=== PATIENT | male | born 1965 | race Caucasian/White ===

== ENCOUNTER 2021-02-28 16:44 | Emergency (ER) | payer OTHER, SELFPAY ==
[2021-02-28 17:07] VITALS: BP 209/112; PULSE 70; RESP 16; TEMP 36.3; O2SAT 97; BMI 32.8
[2021-02-28] MEDS: OXYMETAZOLINE NASAL SPRAY 15 ML 2 SPRAYS NASAL (17:19)
--- NOTE | 2021-02-28 17:23 | PC.NURSE ---
Afrin administered and bleeding controlled with nasal clamp
--- NOTE | 2021-02-28 17:24 | ED_ITS ---
HPI - General Adult General Chief complaint: Nasal Problem Stated complaint: ON BLOOD THINNER NON STOP NOSE BLEED Time Seen by Provider: 02/28/21 17:04 Source: patient Mode of arrival: Ambulatory History of Present Illness HPI narrative: Patient is a 55-year-old male. History of high blood pressure. Has not taken his night dose of metoprolol. Also on Plavix for a cardiac stent that he had placed 13 years ago. His here for evaluation of a nose bleed. He has been having some sinus congestion recently. No trauma. Nose started bleeding earlier today. Related Data Home Medications Medication Instructions Recorded Confirmed clopidogrel 75 mg tablet (Plavix) 75 mg PO QDAY #0 06/09/17 metoprolol tartrate 50 mg tablet 50 mg PO BID #0 06/09/17 Previous Rx's Medication Instructions Recorded metoprolol tartrate 50 mg tablet 50 mg PO BID #28 tab 06/09/17 Allergies Allergy/AdvReac Type Severity Reaction Status Date / Time No Known Allergies Allergy Uncoded 08/29/17 12:50 Review of Systems ENT Ears, Nose, Mouth, and Throat: Reports system reviewed and no additional complaints, except as documented and Reports as per HPI Cardiovascular Cardiovascular: Denies chest pain and Denies dyspnea Respiratory Respiratory: Denies dyspnea Gastrointestinal Gastrointestinal: Denies abdominal pain and Denies nausea Integumentary/Breasts Skin/Breast: Reports system reviewed and no additional complaints, except as documented Hematologic/Lymphatic Comments: On Plavix Patient History Medical History Coronary artery disease Heart palpitations Hypertension Social History marital status: lives independently: Yes Exam Initial Vital Signs Initial Vital Signs: Vital Signs Temperature 97.4 F L 02/28/21 17:07 Pulse Rate 70 02/28/21 17:07 Respiratory Rate 16 02/28/21 17:07 Blood Pressure 209/112 H 02/28/21 17:07 Pulse Oximetry 97 02/28/21 17:07 Const General: cooperative, comfortable and well developed [facility] Head: normal to inspection and normocephalic Nose: other (Blood clot left nares, right nares unremarkable) Resp Effort & Inspection: normal respiratory effort Skin General: no rashes or lesions noted Neuro General: patient alert, patient awake and moves all extremities Extrem General: normal to inspection Procedures Epistaxis Control Nostril: left Nose Prepped With: oxymetazoline Direct Inspection: yes Cautery Used: none Device Inserted: other (Nasal clamp) Patient Tolerated Procedure: well Course Orders Ordered: Discontinued Medications Oxymetazoline HCl (Oxymetazoline Nasal [place] 15 Ml) 2 sprays NASAL NOW ONE Stop: 02/28/21 17:05 Last Admin: 02/28/21 17:19 Dose: 2 sprays Documented by: NAIMA Vital Signs Vital signs: Vital Signs - 8 hr 02/28/21 17:07 Temperature 97.4 F L Pulse Rate 70 Respiratory Rate 16 Blood Pressure 209/112 H Pulse Oximetry 97 Medical Decision Making MDM Narrative Medical decision making narrative: Patient did have a nasal clamp in place by triage prior to my evaluation. By the time I evaluated the patient he had also received Afrin and a nasal clamp as well. This was left in place for approximately 20 minutes. It was removed. There was a large clot seen in the left nares but no active bleeding. He was observed for short period of time. Only had a very slight amount of oozing from the area that I feel is most likely from the clot and not from active bleeding. I do feel that we should hold on any nasal packing for now. Will send home with instructions with what to do if he starts bleeding once again. He was given return precautions and follow-up instructions. He expressed understanding and agreement Discharge Plan Departure Patient Disposition: Home Clinical Impression: Epistaxis, Hypertension Instructions: Essential Hypertension, DI for Nosebleed Activity Restrictions/Additional Instructions: I do recommend that you take your night dose of metoprolol this evening. I would skip your dose of Plavix this evening. Do your best not to rub your nose nor sniff like we discussed. Return to the emergency department for any new or worsening symptoms like we discussed. Prescriptions: No Action metoprolol tartrate 50 MG tablet 50 mg PO BID Qty: 0 RF: 0 clopidogrel [Plavix] 75 MG tablet 75 mg PO QDAY Qty: 0 RF: 0 metoprolol tartrate 50 MG tablet 50 mg PO BID Qty: 28 RF: 0
[2021-02-28 18:00] VITALS: BP 187/102; PULSE 61; RESP 16; O2SAT 95
[2021-02-28 18:48] VITALS: BP 192/110; PULSE 62; RESP 16; O2SAT 96
== END 2021-02-28 18:50 | disposition home or self-care (01) ==
PROVIDERS: Emergency Provider Emergency Medicine
DX: R04.0 Epistaxis (principal); I10 Essential (primary) hypertension
CPT/HCPCS: 99282; A9270

== ENCOUNTER 2021-07-30 01:23 | Emergency (ER) | payer OTHER, SELFPAY ==
[2021-07-30 01:25] VITALS: BP 194/95; PULSE 88; RESP 18; TEMP 36.1; O2SAT 96; BMI 32.3
--- NOTE | 2021-07-30 01:27 | ED_ITS ---
HPI - Headache General Chief Complaint: Headache Stated Complaint: LEFT SIDE HEAD PAIN Time Seen by Provider: 07/30/21 01:27 History of Present Illness HPI Narrative: 56-year-old male former smoker with a history of coronary artery disease presents with his in the chief complaint of a left-sided headache for the past few days. He states it started gradually and has no obvious provocation but seems to improve when he takes Excedrin. He denies blurred vision, double vision, difficulty with speech, dizziness or extremity weakness, numbness or tingling. He denies any chest pain or shortness of breath. He has no abdominal pain, nausea or vomiting. He denies any recent trauma or neck pain. He takes no blood thinners. He states that his pain is about an 8/10 and squeezing in nature. He states that he stopped drinking coffee for some reason though he traditionally drinks a significant amount. He did this on Sunday, Sunday and Sunday and states his headache started soon thereafter. Related Data Home Medications Medication Instructions Recorded Confirmed clopidogrel 75 mg tablet (Plavix) 75 mg PO QDAY #0 06/09/17 metoprolol tartrate 50 mg tablet 50 mg PO BID #0 06/09/17 Previous Rx's Medication Instructions Recorded metoprolol tartrate 50 mg tablet 50 mg PO BID #28 tab 06/09/17 ketorolac 10 mg tablet 10 mg PO Q6H PRN #14 tab 07/30/21 Allergies Allergy/AdvReac Type Severity Reaction Status Date / Time No Known Allergies Allergy Uncoded 08/29/17 12:50 Review of Systems Review of Systems Narrative: GENERAL: See HPI HEENT: See HPI RESPIRATORY: Denies dyspnea, cough, wheezing, hemoptysis, sputum. CARDIOVASCULAR: Denies chest pain, palpitations, orthopnea, edema, GASTROINTESTINAL: Denies nausea, vomiting, abdominal pain, diarrhea, constipation, melena. : Denies dysuria, frequency, incontinence, hematuria, urinary retention. MUSCULOSKELETAL: denies weakness, joint pain, or bony pain SKIN: Denies rash, skin lesions, or other NEUROLOGIC: See HPI PSYCHIATRIC: No concerning psychosocial issues. 12 point review of systems is negative except for those stated above Patient History Medical History Coronary artery disease Heart palpitations Hypertension Social History marital status: lives independently: Yes Smoking Status: Former smoker Exam Narrative Exam Narrative: GENERAL: 56 year old patient appears stated age. Well-developed patient, in mild distress. Anxious HEAD: Atraumatic. Normocephalic. No pain, swelling, erythema upon palpating left judaism EYES: Pupils equal round and reactive. Extraocular motions intact. No scleral icterus. No injection or drainage. No watering. Pressures checked in both eyes. Left eye measures 19 mmHg, right eye measures 20 mm Hg ENT: Nose without bleeding, purulent drainage. Throat without erythema, tonsillar hypertrophy or exudate. Airway patent. NECK: Trachea midline. Non tender. No meningeal signs CARDIOVASCULAR: Regular rate and rhythm without murmurs, gallops, or rubs. RESPIRATORY: Clear to auscultation. Breath sounds equal bilaterally. No wheezes, rales, or rhonchi. GASTROINTESTINAL: Abdomen soft, non-tender, nondistended. EXTREMITIES: No edema or joint tenderness. BACK: Nontender without deformity or crepitance. No flank tenderness. NEURO: AOx3. SKIN: No rash or erythema of visible areas NIH Stroke Scale 1a. LOC: Patient is alert and keenly responsive (0) 1b. LOC Questions: Patient answers both LOC questions accurately (0) 1c. LOC Commands: Patient performs both tasks correctly (0) 2. Best Gaze: Normal (0) 3. Visual: No visual loss (0) 4. Facial palsy: Normal symmetrical movements (0) 5. Motor arm: No drift (0) 6. Motor leg: No drift (0) 7. Limb ataxia: Absent (0) 8. Sensory: Normal (0) 9. Best language: No aphasia; normal (0) 10. Dysarthria: Normal (0) 11. Extinction and inattention: No abnormality (0) NIHSS: 0 Initial Vital Signs Initial Vital Signs: Vital Signs Temperature 97 F L 07/30/21 01:25 Pulse Rate 88 07/30/21 01:25 Respiratory Rate 18 07/30/21 01:25 Blood Pressure 194/95 H 07/30/21 01:25 Pulse Oximetry 96 07/30/21 01:25 Course Orders Ordered: ED Orders 07/30/21 01:35 CT head/brain wo con Stat 07/30/21 01:55 CRP [C-Reactive Protein Quant] Stat Complete Blood Count AUTO DIFF Stat Comprehensive Metabolic Panel Stat ESR [Erythrocyte Sedimentation Rate] Stat Lipase Stat Troponin & CK Cardiac Panel Stat Discontinued Medications Sodium Chloride (Normal Saline 0.9%) 1,000 mls @ 150 mls/hr IV CONT ANTONIA Last Infusion: 07/30/21 03:40 Dose: 150 mls/hr Documented by: Admin: 07/30/21 01:45 Dose: 150 mls/hr Documented by: PRIETO Ketorolac Tromethamine (Ketorolac 30 Mg/Ml Vial) 15 mg IV NOW ONE Stop: 07/30/21 02:27 Last Admin: 07/30/21 02:41 Dose: 15 mg Documented by: PRIETO Proparacaine HCl (Proparacaine 0.5% Ophth Bri) 1 drops EYE-LEFT NOW ONE Stop: 07/30/21 01:36 Last Admin: 07/30/21 01:45 Dose: 1 drop Documented by: PRIETO Reevaluation(s) Reevaluation #1: Patient has significant if not complete resolution of symptoms after above- stated therapies Vital Signs Vital signs: Vital Signs - 8 hr 07/30/21 01:25 07/30/21 01:45 07/30/21 02:00 Temperature 97 F L Pulse Rate 88 80 79 Respiratory Rate 18 18 18 Blood Pressure 194/95 H 192/102 H 174/98 H Pulse Oximetry 96 93 93 07/30/21 02:30 07/30/21 03:00 Temperature Pulse Rate 72 63 Respiratory Rate 19 16 Blood Pressure 189/96 H 174/97 H Pulse Oximetry 91 95 MDM - Headache Lab Data Attestation: I reviewed the patient's lab results. Result diagrams: 07/30/21 01:55 07/30/21 01:55 Labs: Lab Results 07/30/21 07/30/21 07/30/21 Range/Units 01:55 01:55 01:55 WBC 10.6 (4.5-11.0) X10^3/uL RBC 5.52 (4.5-5.9) X10^6/uL Hgb 16.6 (13.5-17.5) g/dL Hct 47.9 (41-53) % MCV 86.7 (80-100) fL MCH 30.0 (26-34) PG MCHC 34.6 (30-36) % RDW 14.0 (11.6-14.8) % Plt Count 307 (150-400) X10^3/uL Neut % (Auto) 61.8 (50-75) % Lymph % (Auto) 23.8 L (25-40) % Blanco % (Auto) 11.6 (3-14) % Eos % (Auto) 2.0 (2-4) % Baso % (Auto) 0.8 (0-2) % Neut # (Auto) 6500 (2489-9977) /uL Lymph # (Auto) 2500 (9594-1149) /uL Blanco # (Auto) 1200 H (0-900) /uL Eos # (Auto) 200 (0-450) /uL Baso # (Auto) 100 (0-100) /uL ESR 7 (0-15) MM/HR Sodium 139 (137-145) mmol/L Potassium 3.4 (3.4-5.1) mmol/L Chloride 105 (98-107) mmol/L Carbon Dioxide 26 (22-32) mmol/L BUN 16 (9-20) mg/dL Creatinine 0.90 (0.66-1.25) mg/dL Estimated GFR > 60.0 (>60) mL/min BUN/Creatinine Ratio 17.8 (6-22) Glucose 134 H (70-100) mg/dL Calcium 10.0 (8.4-10.2) mg/dL Total Bilirubin 0.8 (0.2-1.3) mg/dL AST 29 (17-59) IU/L ALT 32 (<50) IU/L Alkaline Phosphatase 48 (38-126) U/L Total Creatine Kinase 72 (55-170) U/L CK-MB (CK-2) TNP CK-MB (CK-2) Rel Index TNP Troponin I < 0.012 (0.01-0.034) ng/mL C-Reactive Protein (<1.0) mg/dL Total Protein 8.5 H (6.3-8.2) g/dL Albumin 4.7 (3.5-5.0) g/dL Globulin 3.8 (1.7-4.1) g/dL Albumin/Globulin Ratio 1.2 (1.0-2.8) Lipase 228 (23-300) U/L 07/30/21 Range/Units 01:55 WBC (4.5-11.0) X10^3/uL RBC (4.5-5.9) X10^6/uL Hgb (13.5-17.5) g/dL Hct (41-53) % MCV (80-100) fL MCH (26-34) PG MCHC (30-36) % RDW (11.6-14.8) % Plt Count (150-400) X10^3/uL Neut % (Auto) (50-75) % Lymph % (Auto) (25-40) % Blanco % (Auto) (3-14) % Eos % (Auto) (2-4) % Baso % (Auto) (0-2) % Neut # (Auto) (8888-7974) /uL Lymph # (Auto) (6482-1047) /uL Blanco # (Auto) (0-900) /uL Eos # (Auto) (0-450) /uL Baso # (Auto) (0-100) /uL ESR (0-15) MM/HR Sodium (137-145) mmol/L Potassium (3.4-5.1) mmol/L Chloride (98-107) mmol/L Carbon Dioxide (22-32) mmol/L BUN (9-20) mg/dL Creatinine (0.66-1.25) mg/dL Estimated GFR (>60) mL/min BUN/Creatinine Ratio (6-22) Glucose (70-100) mg/dL Calcium (8.4-10.2) mg/dL Total Bilirubin (0.2-1.3) mg/dL AST (17-59) IU/L ALT (<50) IU/L Alkaline Phosphatase (38-126) U/L Total Creatine Kinase (55-170) U/L CK-MB (CK-2) CK-MB (CK-2) Rel Index Troponin I (0.01-0.034) ng/mL C-Reactive Protein < 0.5 (<1.0) mg/dL Total Protein (6.3-8.2) g/dL Albumin (3.5-5.0) g/dL Globulin (1.7-4.1) g/dL Albumin/Globulin Ratio (1.0-2.8) Lipase (23-300) U/L Imaging Data CT scan - head: Radiologist's Impression: [address] [address] [address] Scan Report Signed Patient: Felipe Petersen MR#: [id number] : 1965 Acct:[id number] Age/Sex: 56 / M Date of Service: 07/30/21 Loc: ED Accession Number: [id number] ?? Procedure: CT head/brain wo con Ordering Provider: Oliver Pierce D.O. PROCEDURE:? CT HEAD/BRAIN WO CON ? INDICATIONS:? severe headache, vision change, HTN, thinners ? TECHNIQUE:? Noncontrast 4.5 mm thick angled axial sections acquired from the foramen magnum to the vertex, with coronal and sagittal reformats.? For radiation dose reduction, the following was used:? automated exposure control, adjustment of mA and/or kV according to patient size.? ? COMPARISON:? None. ? FINDINGS:? Image quality:? Excellent.? ? CSF spaces:? Basal cisterns are patent.? No extra-axial fluid collections.? Ventricles are normal in size and shape.? ? Brain:? No midline shift.? No intracranial masses or hemorrhage.? Graham-white matter interface is normal.? ? Skull and face:? Calvarium and visualized facial bones are intact, without suspicious lesions.? ? Sinuses:? Visualized sinuses and mastoids are clear.? ? IMPRESSION:? No acute intracranial abnormality. ? ? Dictated by: Fausto Chang M.D. on 07/30/2021 at 1:49 ? ? Approved by: Fausto Chang M.D. on 07/30/2021 at 1:52 ? MDM Narrative Medical decision making narrative: Headache considerations include, but not limited to: Subarachnoid hemorrhage, but unlikely as patient denies sudden onset of pain, not worst of life, or neck pain Meningitis considered, but thought unlikely given lack of Brudzinski's, Kernig's sign, altered mental status or fever Giant cell arteritis considered, but thought unlikely given lack of unilateral findings, pain in judaism, vision change HTN Emergency considered, but headache improvement was more temporally related to fluids and Toradol than blood pressure control. On discharge his blood pre ssure was in the 170s Other serious diagnoses considered unlikely given lack of red flag findings such as sudden onset, increasing frequency, immunocompromise, systemic signs (fever, chills, stiff neck, or rash), focal neurologic findings, trauma, blood thinners, etc. Source of his symptoms are likely multifactorial but is change in caffeine consumption closely followed by presentation of headaches with improvement when taking Excedrin would suggest this plays a significant role. Patient's symptoms improved over duration of stay with above-stated therapies. Findings and discharge diagnosis discussed with patient/family followed by verbalization of understanding Return precautions discussed with patient/family whom verbalize understanding. Discharge Plan Departure Patient Disposition: Home Clinical Impression: Headache Instructions: DI for Headache Activity Restrictions/Additional Instructions: *You have been diagnosed with [ Headache ] as we discussed your history and physical exam are very reassuring as are your labs, CT scan and response to therapies. It would seem that there are likely multiple contributing factors to your headache and your decreased caffeine intake is likely a large part of this *What to do: *Take medications as directed *Follow up with your primary care provider in 2-3 days, call for an appointment. Let them know you were seen in the Emergency Department and that we ask that you be seen in follow up *Return to ER if you should have any new, worsening or concerning symptoms, such as [ fever > 101F, neck pain or stiffness, vomiting, confusion, seizure, focal weakness, vision change, speech deficit or other concerning symptoms ] Prescriptions: New ketorolac 10 mg tablet 10 mg PO Q6H PRN (Reason: pain) Qty: 14 0RF No Action metoprolol tartrate 50 MG tablet 50 mg PO BID Qty: 0 0RF clopidogrel [Plavix] 75 MG tablet 75 mg PO QDAY Qty: 0 0RF metoprolol tartrate 50 MG tablet 50 mg PO BID Qty: 28 0RF
--- NOTE | 2021-07-30 01:35 | DI.CT.S_ITS ---
PROCEDURE: CT HEAD/BRAIN WO CON INDICATIONS: severe headache, vision change, HTN, thinners TECHNIQUE: Noncontrast 4.5 mm thick angled axial sections acquired from the foramen magnum to the vertex, with coronal and sagittal reformats. For radiation dose reduction, the following was used: automated exposure control, adjustment of mA and/or kV according to patient size. COMPARISON: None. FINDINGS: Image quality: Excellent. CSF spaces: Basal cisterns are patent. No extra-axial fluid collections. Ventricles are normal in size and shape. Brain: No midline shift. No intracranial masses or hemorrhage. Graham-white matter interface is normal. Skull and face: Calvarium and visualized facial bones are intact, without suspicious lesions. Sinuses: Visualized sinuses and mastoids are clear. IMPRESSION: No acute intracranial abnormality. Dictated by: Fausto Chang M.D. on 07/30/2021 at 1:49 Approved by: Fausto Chang M.D. on 07/30/2021 at 1:52
[2021-07-30 01:45] VITALS: BP 192/102; PULSE 80; RESP 18; O2SAT 93
[2021-07-30] MEDS: PROPARACAINE 0.5% OPHTH SOL 1 DROPS EYE-LEFT (01:45)
[2021-07-30] MEDS: SODIUM CHLORIDE 0.9% 1,000 ML 150 ML IV (01:45)
[2021-07-30 02:00] VITALS: BP 174/98; PULSE 79; RESP 18; O2SAT 93
[2021-07-30 02:11] LABS: Add Manual Diff / Slide Review NO; Basophils Absolute Auto 100 /uL (0-100); Basophils Percent Auto 0.8 % (0-2); Eosinophils Absolute Auto 200 /uL (0-450); Hematocrit 47.9 % (41-53); Hemoglobin 16.6 g/dL (13.5-17.5); Lymphocytes Absolute Auto 2500 /uL (1100-4500); Lymphocytes Percent Auto 23.8 % (25-40); Mean Corpuscular HGB Conc 34.6 % (30-36); Mean Corpuscular Volume 86.7 fL (80-100); Monocytes Absolute Auto 1200 /uL (0-900); Monocytes Percent Auto 11.6 % (3-14); Neutrophils Absolute Auto 6500 /uL (1500-7000); Neutrophils Percent Auto 61.8 % (50-75); Platelet Count 307 X10^3/uL (150-400); Red Blood Cell Count 5.52 X10^6/uL (4.5-5.9); White Blood Cell Count 10.6 X10^3/uL (4.5-11.0)
[2021-07-30 02:29] LABS: Alanine Aminotransferase 32 IU/L (<50); Albumin 4.7 g/dL (3.5-5.0); Albumin Globulin Ratio 1.2 (1.0-2.8); Alkaline Phosphatase 48 U/L (38-126); Aspartate Aminotransferase 29 IU/L (17-59); BUN Creatinine Ratio 17.8 (6-22); Bilirubin Total 0.8 mg/dL (0.2-1.3); Blood Urea Nitrogen 16 mg/dL (9-20); Carbon Dioxide 26 mmol/L (22-32); Chloride 105 mmol/L (98-107); Creatine Kinase 72 U/L (55-170); Estimated Glomerular Filt Rate > 60.0 mL/min (>60); Globulin 3.8 g/dL (1.7-4.1); Glucose 134 mg/dL (70-100); HEMOLYSIS < 15 (0-50); Lipase 228 U/L (23-300); Potassium 3.4 mmol/L (3.4-5.1); Sodium 139 mmol/L (137-145); Total Protein 8.5 g/dL (6.3-8.2)
[2021-07-30 02:30] VITALS: BP 189/96; PULSE 72; RESP 19; O2SAT 91
[2021-07-30 02:33] LABS: C-Reactive Protein Quant < 0.5 mg/dL (<1.0)
[2021-07-30 02:34] LABS: Erythrocyte Sedimentation Rate 7 MM/HR (0-15)
[2021-07-30 02:40] LABS: Troponin I < 0.012 ng/mL (0.01-0.034)
[2021-07-30] MEDS: KETOROLAC 30 MG/ML VIAL 15 MG IV (02:41)
[2021-07-30 03:00] VITALS: BP 174/97; PULSE 63; RESP 16; O2SAT 95
== END 2021-07-30 03:42 | disposition home or self-care (01) ==
PROVIDERS: Emergency Provider Emergency Medicine
DX: R51.9 Headache, unspecified (principal); Z87.891 Personal history of nicotine dependence
CPT/HCPCS: 36415; 70450; 80053; 82550; 83690; 84484; 85025; 85651; 86140; 96361; 96374; 99284; 99285; J1885

== ENCOUNTER 2021-08-02 14:46 | Emergency (ER) | payer OTHER, SELFPAY ==
[2021-08-02] VITALS (12 sets, daily range): BP systolic 172–213; BP diastolic 87–103; PULSE 55–68; RESP 12–22; TEMP 36.9; O2SAT 94–99
--- NOTE | 2021-08-02 16:15 | ED_ITS ---
HPI - Headache General Chief Complaint: Headache Stated Complaint: LEFT SIDE OF HEAD PAIN NUMBNESS BLURRY VISION Time Seen by Provider: 08/02/21 16:07 Mode of arrival: Ambulatory History of Present Illness HPI Narrative: Patient is a 56-year-old male history of coronary artery disease presenting for the 2nd time this week with high headache. He says he has been having headache for the last week. He does not typically have headaches. He says it is quite severe on the left side of his head. He has no blurry vision nausea vomiting numbness tingling weakness or chest pain when it comes. Headache resolved with Excedrin. He states that is soon is Excedrin wears off the headache comes back. He has been taking metoprolol for his heart but he has not been checking his blood pressure. He is noted to have quite elevated blood pressure here. He was seen and evaluated here 3 days ago for the same. At that time he is also noted to have elevated blood pressure in the 190s and it did go down into the 170s. He had a negative head CT and workup on the . He continue to have headaches and was instructed to come back to the emergency department for possible MRI. His symptoms remain the same today. He denies any chest pain or palpitations. Related Data Home Medications Medication Instructions Recorded Confirmed clopidogrel 75 mg tablet (Plavix) 75 mg PO QDAY #0 06/09/17 metoprolol tartrate 50 mg tablet 50 mg PO BID #0 06/09/17 Previous Rx's Medication Instructions Recorded metoprolol tartrate 50 mg tablet 50 mg PO BID #28 tab 06/09/17 ketorolac 10 mg tablet 10 mg PO Q6H PRN #14 tab 07/30/21 hydrochlorothiazide 25 mg tablet 25 mg PO DAILY #30 tab 08/02/21 Allergies Allergy/AdvReac Type Severity Reaction Status Date / Time No Known Drug Allergies Allergy Verified 08/02/21 17:51 Review of Systems Review of Systems Narrative: GENERAL: Denies chills, fatigue, malaise, fever, sweats, travel HEENT: Denies sinus pain, ear pain, sore throat, difficulty swallowing, neck pain RESPIRATORY: Denies dyspnea, cough, wheezing, hemoptysis, sputum. CARDIOVASCULAR: Denies chest pain, palpitations, orthopnea, edema GASTROINTESTINAL: Denies nausea, vomiting, abdominal pain, diarrhea, constipation, melena. : Denies dysuria, frequency, incontinence, hematuria, urinary retention, flank pain. MUSCULOSKELETAL: Denies weakness, joint pain, or bony pain SKIN: No rash, no erythema, no pruritus NEUROLOGIC: See HPI PSYCHIATRIC: No concerning psychosocial issues. 12 point review of systems is negative except for those stated above and HPI Patient History Medical History Coronary artery disease Heart palpitations Hypertension Social History marital status: lives independently: Yes Smoking Status: Former smoker Smoking Status: Former smoker alcohol intake frequency: 0-2 drinks per day Substance Use Type: does not use Exam Initial Vital Signs Initial Vital Signs: Vital Signs Temperature 98.4 F 08/02/21 14:49 Pulse Rate 66 08/02/21 14:49 Respiratory Rate 18 08/02/21 14:49 Blood Pressure 203/103 H 08/02/21 14:49 Pulse Oximetry 97 08/02/21 14:49 GENERAL: Alert 56-year-old male in no acute distress. HEENT: Head atraumatic, non tender over temporal artery, EOMI, pupils reactive, face symmetric, moist mucous membranes CARDIOVASCULAR: Regular rate and rhythm without murmurs, rubs or gallops. RESPIRATORY: Breath sounds equal bilaterally, no wheezes rales or rhonchi. ABDOMEN: Soft, nontender. Normoactive bowel sounds all 4 quadrants. No guarding or rebound. : No CVA tenderness EXTREMITIES: Normal range of motion, no clubbing or edema. Neurovascularly intact NEUROLOGICAL: Alert and oriented x4.Normal gait and speech. SKIN: Warm, dry, no laceration, no petechiae, no rashes or lesions. Scores NIH Stroke Scale Level of Conciousness: Alert, keenly responsive Ask month/age: Answers both questions correctly. Open/close eyes, close hand: Performs both tasks correctly Best gaze horizontal: Normal Visual grant: No visual loss Facial palsy: Normal symetrical movement Left arm drift: No drift for full 10 sec Right arm drift: No drift for full 10 sec Left leg drift: No drift for full 5 sec Right leg drift: No drift for full 5 sec Limb ataxia: Absent Sensory on face/arms/legs: Normal, no sensory loss Best language: No aphasia, normal Dysarthria: Normal Extinction or inattention: No abnormality Total NIH Stroke scale score: 0 Course Orders Ordered: ED Orders 08/02/21 16:27 EKG-12 Lead Stat 08/02/21 16:41 Complete Blood Count AUTO DIFF Stat Comprehensive Metabolic Panel Stat Lipase Stat Troponin & CK Cardiac Panel Stat Discontinued Medications Sodium Chloride (Normal Saline 0.9%) 1,000 mls @ 1,000 mls/hr IV CONT ANTONIA Last Infusion: 08/02/21 18:02 Dose: 0 mls/hr Documented by: Admin: 08/02/21 16:58 Dose: 1,000 mls/hr Documented by: KOREY Ketorolac Tromethamine (Ketorolac 30 Mg/Ml Vial) 15 mg IV NOW ONE Stop: 08/02/21 16:28 Last Admin: 08/02/21 16:57 Dose: 15 mg Documented by: KOREY Labetalol HCl (Labetalol 20 Mg/4 Ml Syringe) 10 mg IV NOW ONE Stop: 08/02/21 17:30 Last Admin: 08/02/21 17:39 Dose: 10 mg Documented by: KOREY Vital Signs Vital signs: Vital Signs - 8 hr 08/02/21 14:49 08/02/21 16:29 08/02/21 16:30 Temperature 98.4 F Pulse Rate 66 63 68 Respiratory Rate 18 15 16 Blood Pressure 203/103 H 213/98 H Pulse Oximetry 97 99 96 08/02/21 16:34 08/02/21 17:00 08/02/21 17:30 Temperature Pulse Rate 63 59 L 57 L Respiratory Rate 15 12 13 Blood Pressure 196/100 H 198/99 H Pulse Oximetry 98 95 94 08/02/21 17:31 08/02/21 17:39 08/02/21 18:00 Temperature Pulse Rate 58 L 58 L 65 Respiratory Rate 19 20 Blood Pressure 198/87 H 198/97 H 207/93 H Pulse Oximetry 94 94 08/02/21 18:06 08/02/21 18:19 08/02/21 18:30 Temperature Pulse Rate 55 L 60 57 L Respiratory Rate 13 22 16 Blood Pressure 204/88 H 186/91 H 172/92 H Pulse Oximetry 96 96 95 MDM - Headache Lab Data Result diagrams: 08/02/21 16:41 08/02/21 16:41 Labs: Lab Results 08/02/21 08/02/21 Range/Units 16:41 16:41 WBC 8.3 (4.5-11.0) X10^3/uL RBC 5.34 (4.5-5.9) X10^6/uL Hgb 16.5 (13.5-17.5) g/dL Hct 46.4 (41-53) % MCV 86.8 (80-100) fL MCH 30.9 (26-34) PG MCHC 35.6 (30-36) % RDW 13.4 (11.6-14.8) % Plt Count 312 (150-400) X10^3/uL Neut % (Auto) 57.4 (50-75) % Lymph % (Auto) 27.0 (25-40) % [place] % (Auto) 11.1 (3-14) % Eos % (Auto) 3.3 (2-4) % Baso % (Auto) 1.2 (0-2) % Neut # (Auto) 4700 (9640-7790) /uL Lymph # (Auto) 2200 (5435-7314) /uL [place] # (Auto) 900 (0-900) /uL Eos # (Auto) 300 (0-450) /uL Baso # (Auto) 100 (0-100) /uL Sodium 139 (137-145) mmol/L Potassium 4.0 (3.4-5.1) mmol/L Chloride 105 (98-107) mmol/L Carbon Dioxide 30 (22-32) mmol/L BUN 20 (9-20) mg/dL Creatinine 0.86 (0.66-1.25) mg/dL Estimated GFR > 60.0 (>60) mL/min BUN/Creatinine Ratio 23.3 H (6-22) Glucose 98 (70-100) mg/dL Calcium 8.9 (8.4-10.2) mg/dL Total Bilirubin 0.7 (0.2-1.3) mg/dL AST 30 (17-59) IU/L ALT 32 (<50) IU/L Alkaline Phosphatase 43 (38-126) U/L Total Creatine Kinase 55 (55-170) U/L CK-MB (CK-2) TNP CK-MB (CK-2) Rel Index TNP Troponin I < 0.012 (0.01-0.034) ng/mL Total Protein 8.4 H (6.3-8.2) g/dL Albumin 4.5 (3.5-5.0) g/dL Globulin 3.9 (1.7-4.1) g/dL Albumin/Globulin Ratio 1.2 (1.0-2.8) Lipase 270 (23-300) U/L ECG Data Interpretation: Will sinus rhythm rate 56 WV interval 166 QRS [address] changes no T-wave inversions similar to previous EKG MDM Narrative Medical decision making narrative: Patient's blood pressure is noted be quite elevated during this emergency department stay and last. Only briefly came down. His he does have a history of high blood pressure he actually apparently with previously on lisinopril but due to a side effect of cough he stopped taking it. I think his headaches are likely due to uncontrolled hypertension. He currently is not having headache at this time though. He is agreeable to start blood pressure medication. At this time patient has no evidence of end-organ damage. He has no focal deficit deficits to warrant repeat imaging. He also states he stop taking Plavix but was taking aspirin due to multiple epistaxis Discharge Plan Departure Patient Disposition: Home Clinical Impression: Hypertension Instructions: Essential Hypertension Activity Restrictions/Additional Instructions: *You have been diagnosed with hypertension *What to do: At this time I think it is reasonable that we get your blood pressure under control. Your CT scan from 3 days ago was negative. You may not feel very good we are blood pressure is getting under control. Please check your blood pressure once a day either morning or night and recorded. Also record your headaches. *Continue to take medications as directed Hydrochlorothiazide 25 mg once a day in morning--> SENT TO [facility] IN [place] Please continue your metoprolol *Follow up with your primary care provider in 2-3 days or call [phone] *Return to ER if you should have worsening headache weakness numbness tingling chest pain nausea vomiting of numbness tingling and weakness or any new, worsening or concerning symptoms Prescriptions: New hydrochlorothiazide 25 mg tablet 25 mg PO DAILY Qty: 30 0RF No Action metoprolol tartrate 50 MG tablet 50 mg PO BID Qty: 0 0RF clopidogrel [Plavix] 75 MG tablet 75 mg PO QDAY Qty: 0 0RF metoprolol tartrate 50 MG tablet 50 mg PO BID Qty: 28 0RF ketorolac 10 mg tablet 10 mg PO Q6H PRN (Reason: pain) Qty: 14 0RF
[2021-08-02 16:55] LABS: Add Manual Diff / Slide Review NO; Basophils Absolute Auto 100 /uL (0-100); Basophils Percent Auto 1.2 % (0-2); Eosinophils Absolute Auto 300 /uL (0-450); Eosinophils Percent Auto 3.3 % (2-4); Hematocrit 46.4 % (41-53); Hemoglobin 16.5 g/dL (13.5-17.5); Lymphocytes Absolute Auto 2200 /uL (1100-4500); Mean Corpuscular HGB Conc 35.6 % (30-36); Mean Corpuscular Hemoglobin 30.9 PG (26-34); Mean Corpuscular Volume 86.8 fL (80-100); Monocytes Absolute Auto 900 /uL (0-900); Monocytes Percent Auto 11.1 % (3-14); Neutrophils Absolute Auto 4700 /uL (1500-7000); Neutrophils Percent Auto 57.4 % (50-75); Platelet Count 312 X10^3/uL (150-400); Red Blood Cell Count 5.34 X10^6/uL (4.5-5.9); Red Cell Distribution Width 13.4 % (11.6-14.8); White Blood Cell Count 8.3 X10^3/uL (4.5-11.0)
[2021-08-02] MEDS: KETOROLAC 30 MG/ML VIAL 15 MG IV (16:57)
[2021-08-02] MEDS: SODIUM CHLORIDE 0.9% 1,000 ML 1000 ML IV (16:58)
[2021-08-02 17:02] LABS: Alanine Aminotransferase 32 IU/L (<50); Albumin 4.5 g/dL (3.5-5.0); Albumin Globulin Ratio 1.2 (1.0-2.8); Alkaline Phosphatase 43 U/L (38-126); Aspartate Aminotransferase 30 IU/L (17-59); BUN Creatinine Ratio 23.3 (6-22); Bilirubin Total 0.7 mg/dL (0.2-1.3); Blood Urea Nitrogen 20 mg/dL (9-20); Calcium 8.9 mg/dL (8.4-10.2); Carbon Dioxide 30 mmol/L (22-32); Chloride 105 mmol/L (98-107); Creatine Kinase 55 U/L (55-170); Estimated Glomerular Filt Rate > 60.0 mL/min (>60); Globulin 3.9 g/dL (1.7-4.1); Glucose 98 mg/dL (70-100); HEMOLYSIS 44 (0-50); Lipase 270 U/L (23-300); Sodium 139 mmol/L (137-145); Total Protein 8.4 g/dL (6.3-8.2)
[2021-08-02 17:14] LABS: Troponin I < 0.012 ng/mL (0.01-0.034)
[2021-08-02] MEDS: LABETALOL 20 MG/4 ML SYRINGE 10 MG IV (17:39)
== END 2021-08-02 18:47 | disposition home or self-care (01) ==
PROVIDERS: Emergency Provider Emergency Medicine
DX: I10 Essential (primary) hypertension (principal); Z87.891 Personal history of nicotine dependence
CPT/HCPCS: 36415; 80053; 82550; 83690; 84484; 85025; 93005; 93010; 96361; 96374; 96375; 99284; J1885

== ENCOUNTER 2021-08-03 13:17 | Observation (INO) | payer OTHER, SELFPAY ==
[2021-08-03] VITALS (18 sets, daily range): BP systolic 149–209; BP diastolic 89–104; PULSE 62–79; RESP 15–25; TEMP 36.6–36.8; O2SAT 93–99; BMI 32.5
--- NOTE | 2021-08-03 13:35 | DI.CT.S_ITS ---
PROCEDURE: CT ANGIO HEAD AND NECK INDICATIONS: htn, double vision, left sided headache TECHNIQUE: Noncontrast images were performed earlier in the day and not repeated. After the administration of intravenous contrast, 1 mm thick sections acquired from the aortic arch through the [place] of [place]. Post-contrast 4.5 mm thick sections then re-acquired from the foramen magnum to the vertex. 3-dimensional [id number] (MIP) and/or volume rendering reformats were acquired of the central intracranial vasculature and neck separately. COMPARISON: [facility], CT, CT HEAD/BRAIN WO CON, 07/30/2021, 1:40. [facility], CT, CT HEAD/BRAIN WO CON, 08/03/2021, 14:05. FINDINGS: Image quality: Excellent. BRAIN: CSF spaces: Ventricles are normal in size and shape. Basal cisterns are patent. No extra-axial fluid collections. Brain: No midline shift. No intracranial bleeds or masses. [place]-white matter interface appears intact. Skull and face: Calvarium and facial bones appear intact, without suspicious lesions. Orbits appear normal. Sinuses: Sinuses and mastoids are clear. HEAD CT ANGIOGRAPHY: Anterior circulation: Intracranial internal carotid arteries are normal in size and flow. The flow within the paired anterior cerebral arteries is normal and symmetric. The flow within the middle cerebral arteries is normal and symmetric. The anterior communicating artery is seen. No aneurysms are seen. Posterior circulation: Visualized portions of the vertebral arteries demonstrate normal caliber, and join to form a normal appearing basilar artery. There is a prominent left posterior communicating artery seen, with an accompanying diminutive left P1 segment. This is attributed to a type origin of the left posterior cerebral artery, which is considered to be a normal developmental variant of typically no clinical consequence. Flow within the posterior cerebral arteries is normal and symmetric. No aneurysms are seen. NECK CT ANGIOGRAPHY: Carotid system: The great vessels demonstrate a conventional anatomy as they arise from the aortic arch. The origins of the common carotid arteries appear patent. The common carotid arteries demonstrate normal caliber and courses. The bifurcation regions are both widely patent. The internal carotid arteries demonstrate normal calibers and courses. Posterior circulation: The origins of the vertebral arteries both appear widely patent. The more superior extracranial portions of both vertebral arteries also demonstrate normal courses and calibers. They join to form a normal appearing basilar artery. Soft tissues: Visualized neck soft tissues demonstrate no suspicious abnormalities. Bones: No suspicious bony lesions. Visualized cervical spine appears normally aligned. [id number] lower cervical spine degenerative changes are seen. IMPRESSION: No imaging explanation is found for this patient's presenting symptoms. No significant intracranial arterial abnormality is seen. Within the arteries of the neck, no hemodynamically significant stenosis can be seen. Any quantitative measurements of stenosis were performed using NASCET criteria. Dictated by: Mitul Ochoa M.D. on 08/03/2021 at 13:49 Approved by: Mitul Ochoa M.D. on 08/03/2021 at 13:51
--- NOTE | 2021-08-03 13:44 | DI.CT.S_ITS ---
PROCEDURE: CT HEAD/BRAIN WO CON INDICATIONS: double vision htn headache left side TECHNIQUE: Noncontrast 4.5 mm thick angled axial sections acquired from the foramen magnum to the vertex, with coronal and sagittal reformats. For radiation dose reduction, the following was used: automated exposure control, adjustment of mA and/or kV according to patient size. COMPARISON: [facility], CT, CT HEAD/BRAIN WO CON, 07/30/2021, 1:40. FINDINGS: Image quality: Excellent. CSF spaces: Basal cisterns are patent. No extra-axial fluid collections. The ventricles are symmetric in size and shape. Brain: No intracranial bleeds or masses. There is cerebral volume loss for age, with resultant ventricular and sulcal prominence. There are periventricular and deep white matter chronic small vessel ischemic changes. There is intracranial internal carotid artery atherosclerosis. Skull and face: Calvarium and visualized facial bones appear intact, without suspicious lesions. Sinuses: Visualized sinuses and mastoids are clear. IMPRESSION: No acute intracranial abnormality. Dictated by: Debby Graham M.D. on 08/03/2021 at 14:46 Approved by: Debby Graham M.D. on 08/03/2021 at 14:47
[2021-08-03 13:54] LABS: Add Manual Diff / Slide Review NO; Basophils Absolute Auto 100 /uL (0-100); Basophils Percent Auto 1.1 % (0-2); Eosinophils Absolute Auto 200 /uL (0-450); Eosinophils Percent Auto 2.6 % (2-4); Hematocrit 48.8 % (41-53); Hemoglobin 17.2 g/dL (13.5-17.5); Lymphocytes Absolute Auto 2000 /uL (1100-4500); Lymphocytes Percent Auto 25.8 % (25-40); Mean Corpuscular HGB Conc 35.2 % (30-36); Mean Corpuscular Hemoglobin 30.3 PG (26-34); Mean Corpuscular Volume 86.1 fL (80-100); Monocytes Absolute Auto 800 /uL (0-900); Monocytes Percent Auto 9.8 % (3-14); Neutrophils Absolute Auto 4800 /uL (1500-7000); Neutrophils Percent Auto 60.7 % (50-75); Platelet Count 305 X10^3/uL (150-400); Red Blood Cell Count 5.66 X10^6/uL (4.5-5.9); Red Cell Distribution Width 13.7 % (11.6-14.8); White Blood Cell Count 7.9 X10^3/uL (4.5-11.0)
[2021-08-03 14:06] LABS: Alanine Aminotransferase 34 IU/L (<50); Albumin 5.1 g/dL (3.5-5.0); Albumin Globulin Ratio 1.3 (1.0-2.8); Alkaline Phosphatase 53 U/L (38-126); Aspartate Aminotransferase 29 IU/L (17-59); BUN Creatinine Ratio 16.7 (6-22); Bilirubin Total 0.8 mg/dL (0.2-1.3); Blood Urea Nitrogen 14 mg/dL (9-20); Calcium 10.1 mg/dL (8.4-10.2); Carbon Dioxide 26 mmol/L (22-32); Chloride 103 mmol/L (98-107); Creatine Kinase 50 U/L (55-170); Estimated Glomerular Filt Rate > 60.0 mL/min (>60); Globulin 3.9 g/dL (1.7-4.1); Glucose 109 mg/dL (70-100); HEMOLYSIS < 15 (0-50); Lipase 358 U/L (23-300); Potassium 4.2 mmol/L (3.4-5.1); Sodium 140 mmol/L (137-145)
[2021-08-03 14:17] LABS: Troponin I < 0.012 ng/mL (0.01-0.034)
[2021-08-03] MEDS: LABETALOL 20 MG/4 ML SYRINGE 10 MG IV ×2 (14:49→15:28)
[2021-08-03 15:10] LABS: COVID19 -Nasal RAPID Negative (Negative)
--- NOTE | 2021-08-03 15:17 | ED_ITS ---
HPI - General Adult General Chief complaint: Hypertension Stated complaint: Stroke like symptoms, high bp Time Seen by Provider: 08/03/21 13:27 Source: patient and family Mode of arrival: Ambulatory History of Present Illness HPI narrative: Patient is a 56-year-old male who presents for the 3rd arm week with hypertension and headache. I saw evaluated yesterday he had blood work yesterday which was normal but found to be quite hypertensive. He was started on hydrochlorothiazide, which he actually took his 1st dose last night. His bl ood pressure was in the 200s. His he also took an Excedrin migraine last night because he had recurrence of his headache. This morning woke up with blurry vision. No numbness tingling or weakness. No blackening or loss of vision. No nausea or vomiting. All pressure continues to be quite elevated. He denies any chest pain palpitations shortness of breath. Related Data Home Medications Medication Instructions Recorded Confirmed clopidogrel 75 mg tablet (Plavix) 75 mg PO QDAY #0 06/09/17 08/03/21 metoprolol tartrate 50 mg tablet 50 mg PO BID #0 06/09/17 08/03/21 amoxicillin 500 mg capsule 500 mg PO TID 08/03/21 08/03/21 eiklcmv-vsusbemxmjsor-cgjjpgox 250 1 tab PO Q4-6H PRN 08/03/21 08/03/21 mg-250 mg-65 mg tablet (Excedrin Migraine) ketorolac 10 mg tablet 10 mg PO Q6H 08/03/21 08/03/21 Previous Rx's Medication Instructions Recorded hydrochlorothiazide 25 mg tablet 25 mg PO DAILY #30 tab 08/02/21 Allergies Allergy/AdvReac Type Severity Reaction Status Date / Time No Known Drug Allergies Allergy Verified 08/02/21 17:51 Review of Systems Review of Systems Narrative: GENERAL: Denies chills, fatigue, malaise, fever, sweats, travel HEENT: Denies sinus pain, ear pain, sore throat, difficulty swallowing, neck pain RESPIRATORY: Denies dyspnea, cough, wheezing, hemoptysis, sputum. CARDIOVASCULAR: Denies chest pain, palpitations, orthopnea, edema GASTROINTESTINAL: Denies nausea, vomiting, abdominal pain, diarrhea, constipation, melena. : Denies dysuria, frequency, incontinence, hematuria, urinary retention, flank pain. MUSCULOSKELETAL: Denies weakness, joint pain, or bony pain SKIN: No rash, no erythema, no pruritus NEUROLOGIC: See HPI PSYCHIATRIC: No concerning psychosocial issues. 12 point review of systems is negative except for those stated above and HPI Patient History Medical History Coronary artery disease Heart palpitations Hypertension Family History (Updated 08/03/21 @ 17:27 by Melisa Reece MD) Mother Myocardial infarction Brother Myocardial infarction Sister Myocardial infarction Social History marital status: lives independently: Yes Smoking Status: Former smoker Smoking Status: Former smoker alcohol intake frequency: 0-2 drinks per day Substance Use Type: does not use Exam Initial Vital Signs Initial Vital Signs: Vital Signs Temperature 97.8 F 08/03/21 13:20 Pulse Rate 67 08/03/21 13:20 Respiratory Rate 18 08/03/21 13:20 Blood Pressure 199/101 H 08/03/21 13:20 Pulse Oximetry 98 08/03/21 13:20 GENERAL: Alert well-appearing 56-year-old HEENT: Head atraumatic,EOMI, pupils reactive, face symmetric, moist mucous membranes CARDIOVASCULAR: Regular rate and rhythm without murmurs, rubs or gallops. RESPIRATORY: Breath sounds equal bilaterally, no wheezes rales or rhonchi. ABDOMEN: Soft, nontender. Normoactive bowel sounds all 4 quadrants. No guarding or rebound. EXTREMITIES: Normal range of motion, no clubbing or edema. Neurovascularly intact NEUROLOGICAL: Alert and oriented x4.Normal gait and speech. Cranial nerves II through XII grossly intact. Good kesobc-iu-kjuj, good fdzg-qr-errh, strength equal bilaterally, no dysarthria or aphasia, sensation in tact to soft touch bilaterally, no visual changes, no facial droop SKIN: Warm, dry, no laceration, no petechiae, no rashes or lesions. Scores NIH Stroke Scale Level of Conciousness: Alert, keenly responsive Ask month/age: Answers both questions correctly. Open/close eyes, close hand: Performs both tasks correctly Best gaze horizontal: Normal Visual grant: No visual loss Facial palsy: Normal symetrical movement Left arm drift: No drift for full 10 sec Right arm drift: No drift for full 10 sec Left leg drift: No drift for full 5 sec Right leg drift: No drift for full 5 sec Limb ataxia: Absent Sensory on face/arms/legs: Normal, no sensory loss Best language: No aphasia, normal Dysarthria: Normal Extinction or inattention: No abnormality Total NIH Stroke scale score: 0 Course Orders Ordered: ED Orders 08/03/21 13:35 CT angio head and neck Stat EKG-12 Lead Stat 08/03/21 13:44 CT head/brain wo con Stat 08/03/21 13:45 Complete Blood Count AUTO DIFF Stat Comprehensive Metabolic Panel Stat Lipase Stat Troponin & CK Cardiac Panel Stat 08/03/21 14:48 COVID19 -Nasal swab/Pre-Proc Stat Acetaminophen (Acetaminophen 325 Mg Tablet) 975 mg PO Q8HR PRN PRN Reason: headache Acetaminophen/Butalbital/Caffeine (Butalb/Apap/Caffeine 50/325/40 Tablet) 1 each PO Q4HR PRN PRN Reason: Headache Amlodipine Besylate (Amlodipine 5 Mg Tablet) 10 mg PO DAILY [facility] Last Admin: 08/03/21 18:09 Dose: 10 mg Documented by: LAYNE Amoxicillin (Amoxicillin 250 Mg Capsule) 500 mg PO TID [facility] Last Admin: 08/03/21 18:08 Dose: 500 mg Documented by: LAYNE Clopidogrel Bisulfate (Clopidogrel 75 Mg Tablet) 75 mg PO DAILY [facility] Enoxaparin Sodium (Enoxaparin 40 Mg/0.4 Ml Syringe) 40 mg SUBCUT DAILY [facility] Hydrochlorothiazide (Hydrochlorothiazide 25 Mg Tablet) 25 mg PO DAILY [facility] Ketorolac Tromethamine (Ketorolac 30 Mg/Ml Vial) 15 mg IV Q6H [facility] Stop: 08/08/21 17:21 Last Admin: 08/03/21 18:09 Dose: 15 mg Documented by: LAYNE Metoprolol Succinate (Metoprolol Er 50 Mg Tablet) 50 mg PO BID [facility] Naloxone HCl (Naloxone 0.4 Mg/Ml Vial) 0.2 mg IV Q2MIN PRN PRN Reason: Opiate Reversal Ondansetron HCl (Ondansetron 4 Mg/2 Ml Inj) 4 mg IV Q8HR PRN PRN Reason: Nausea And Vomiting Tramadol HCl (Tramadol 50 Mg Tablet) 100 mg PO Q4H PRN PRN Reason: Pain, Severe (7-10) Stop: 08/06/21 17:16 Discontinued Medications Labetalol HCl (Labetalol 20 Mg/4 Ml Syringe) 10 mg IV NOW ONE Stop: 08/03/21 14:33 Last Admin: 08/03/21 14:49 Dose: 10 mg Documented by: EMANUEL Labetalol HCl (Labetalol 20 Mg/4 Ml Syringe) 10 mg IV NOW ONE Stop: 08/03/21 15:28 Last Admin: 08/03/21 15:28 Dose: 10 mg Documented by: ABDOULAYE Vital Signs Vital signs: Vital Signs - 8 hr 08/03/21 13:20 08/03/21 13:30 08/03/21 13:33 Temperature 97.8 F Pulse Rate 67 67 65 Respiratory Rate 18 16 15 Blood Pressure 199/101 H 178/97 H Pulse Oximetry 98 99 96 08/03/21 14:00 08/03/21 14:21 08/03/21 14:30 Temperature Pulse Rate 64 69 73 Respiratory Rate 19 15 25 H Blood Pressure 209/102 H Pulse Oximetry 95 95 93 08/03/21 14:45 08/03/21 14:49 08/03/21 14:52 Temperature Pulse Rate 71 79 69 Respiratory Rate 25 H 15 Blood Pressure 209/102 H 159/90 H Pulse Oximetry 94 93 08/03/21 15:00 08/03/21 15:15 Temperature Pulse Rate 70 67 Respiratory Rate 20 15 Blood Pressure 194/96 H 203/97 H Pulse Oximetry 95 93 Medical Decision Making Lab Data Result diagrams: 08/03/21 13:45 08/03/21 13:45 Labs: Lab Results 08/03/21 08/03/21 08/03/21 Range/Units 13:45 13:45 14:48 WBC 7.9 (4.5-11.0) X10^3/uL RBC 5.66 (4.5-5.9) X10^6/uL Hgb 17.2 (13.5-17.5) g/dL Hct 48.8 (41-53) % MCV 86.1 (80-100) fL MCH 30.3 (26-34) PG MCHC 35.2 (30-36) % RDW 13.7 (11.6-14.8) % Plt Count 305 (150-400) X10^3/uL Neut % (Auto) 60.7 (50-75) % Lymph % (Auto) 25.8 (25-40) % Wright % (Auto) 9.8 (3-14) % Eos % (Auto) 2.6 (2-4) % Baso % (Auto) 1.1 (0-2) % Neut # (Auto) 4800 (4862-6525) /uL Lymph # (Auto) 2000 (0563-3129) /uL Wright # (Auto) 800 (0-900) /uL Eos # (Auto) 200 (0-450) /uL Baso # (Auto) 100 (0-100) /uL Sodium 140 (137-145) mmol/L Potassium 4.2 (3.4-5.1) mmol/L Chloride 103 (98-107) mmol/L Carbon Dioxide 26 (22-32) mmol/L BUN 14 (9-20) mg/dL Creatinine 0.84 (0.66-1.25) mg/dL Estimated GFR > 60.0 (>60) mL/min BUN/Creatinine Ratio 16.7 (6-22) Glucose 109 H (70-100) mg/dL Calcium 10.1 (8.4-10.2) mg/dL Total Bilirubin 0.8 (0.2-1.3) mg/dL AST 29 (17-59) IU/L ALT 34 (<50) IU/L Alkaline Phosphatase 53 (38-126) U/L Total Creatine Kinase 50 L (55-170) U/L CK-MB (CK-2) TNP CK-MB (CK-2) Rel Index TNP Troponin I < 0.012 (0.01-0.034) ng/mL Total Protein 9.0 H (6.3-8.2) g/dL Albumin 5.1 H (3.5-5.0) g/dL Globulin 3.9 (1.7-4.1) g/dL Albumin/Globulin Ratio 1.3 (1.0-2.8) Lipase 358 H (23-300) U/L SARS-CoV-2 (PCR) Negative (Negative) Imaging Data CT scan - head: Radiologist's Impression: PROCEDURE:? CT HEAD/BRAIN WO CON ? INDICATIONS:? severe headache, vision change, HTN, thinners ? TECHNIQUE:? Noncontrast 4.5 mm thick angled axial sections acquired from the foramen magnum to the vertex, with coronal and sagittal reformats.? For radiation dose reduction, the following was used:? automated exposure control, adjustment of mA and/or kV according to patient size.? ? COMPARISON:? None. ? FINDINGS:? Image quality:? Excellent.? ? CSF spaces:? Basal cisterns are patent.? No extra-axial fluid collections.? Ventricles are normal in size and shape.? ? Brain:? No midline shift.? No intracranial masses or hemorrhage.? Graham-white matter interface is normal.? ? Skull and face:? Calvarium and visualized facial bones are intact, without suspicious lesions.? ? Sinuses:? Visualized sinuses and mastoids are clear.? ? IMPRESSION:? No acute intracranial abnormality. ? ? Dictated by: Fausto Chang M.D. on 07/30/2021 at 1:49 ? ? CTA - brain/neck: Radiologist's Impression: PROCEDURE:? CT ANGIO HEAD AND NECK ? INDICATIONS:? htn, double vision, left sided headache ? TECHNIQUE:? Noncontrast images were performed earlier in the day and not repeated.? ? After the administration of intravenous contrast, 1 mm thick sections acquired from the aortic arch through the [place] of [place].? Post-contrast 4.5 mm thick sections then re- acquired from the foramen magnum to the vertex.? 3-dimensional auswqan-lfjwvcpjh-bpstzcgytf (MIP) and/or volume rendering reformats were acquired of the central intracranial vasc ulature and neck separately. ? COMPARISON:? [facility], CT, CT HEAD/BRAIN WO CON, 07/30/2021, 1:40.? [facility], CT, CT HEAD/BRAIN WO CON, 08/03/2021, 14:05. ? FINDINGS:? Image quality:? Excellent.? ? BRAIN:? CSF spaces:? Ventricles are normal in size and shape.? Basal cisterns are patent.? No extra-axial fluid collections.? ? Brain:? No midline shift.? No intracranial bleeds or masses.? Graham-white matter interface appears intact.? ? Skull and face:? Calvarium and facial bones appear intact, without suspicious lesions.? Orbits appear normal.? ? Sinuses:? Sinuses and mastoids are clear.? ? HEAD CT ANGIOGRAPHY:? Anterior circulation:? Intracranial internal carotid arteries are normal in size and flow.? The flow within the paired anterior cerebral arteries is normal and symmetric.? The flow within the middle cerebral arteries is normal and symmetric.? The anterior communicating artery is seen.? No aneurysms are seen.? ? Posterior circulation:? Visualized portions of the vertebral arteries demonstrate normal caliber, and join to form a normal appearing basilar artery. There is a prominent left posterior communicating artery seen, with an accompanying diminutive left P1 segment. This is attributed to a type origin of the left posterior cerebral artery, which is considered to be a normal developmental variant of typically no clinical consequence.? Flow within the posterior cerebral arteries is normal and symmetric.? No aneurysms are seen.? ? NECK CT ANGIOGRAPHY:? Carotid system:? The great vessels demonstrate a conventional anatomy as they arise from the aortic arch.? The origins of the common carotid arteries appear patent.? The common carotid arteries demonstrate normal caliber and courses.? The bifurcation regions are both widely patent.? The internal carotid arteries demonstrate normal calibers and courses.? ? Posterior circulation:? The origins of the vertebral arteries both appear widely patent.? The more superior extracranial portions of both vertebral arteries also demonstrate normal courses and calibers.? They join to form a normal appearing basilar artery.? ? Soft tissues:? Visualized neck soft tissues demonstrate no suspicious abnormalities.? ? Bones:? No suspicious bony lesions.? Visualized cervical spine appears normally aligned.? Nwub-cr-wglsdopi lower cervical spine degenerative changes are seen. ? ? IMPRESSION:? ? No imaging explanation is found for this patient's presenting symptoms.? ? No significant intracranial arterial abnormality is seen. ? Within the arteries of the neck, no hemodynamically significant stenosis can be seen. ? ? ? Any quantitative measurements of stenosis were performed using NASCET criteria.? ? ? Dictated by: Mitul Ochoa M.D. on 08/03/2021 at 13:49 ? ? ECG Data Interpretation: Normal sinus rhythm rate 65 NE interval 170 QRS 86 QTC 380 T-wave inversion noted in lead 3 MDM Narrative Medical decision making narrative: The patient is now been to the ER 3 times every time he is found to be hypertensive. He has had ongoing headaches. Blood pressure is still uncontrolled. At this time he has no his blood work sign of end-organ damage however he continues to have symptoms of headache. No he is also having blurry vision. He is given labetalol in the ED. Discussed with Dr. Reece about admission, who accepts Discharge Plan Departure Patient Disposition: Admitted as Observation Clinical Impression: Hypertensive emergency Admit Date/Time: 08/03/21 15:22 Admit Provider: Melisa Reece
--- NOTE | 2021-08-03 17:19 | DI.MRI.S_ITS ---
PROCEDURE: MR HEAD/BRAIN WO CON INDICATIONS: headache TECHNIQUE: Noncontrast axial T1 spin echo, axial T2 fast spin echo, sagittal and axial FLAIR, coronal T2 fast spin echo, axial gradient echo, axial diffusion and ADC through the brain. COMPARISON: [facility], CT, CT HEAD/BRAIN WO CON, 08/03/2021, 14:05. FINDINGS: Image quality: Excellent. CSF Spaces: Basal cisterns are patent. No extra-axial fluid collections. Ventricles are normal in size and shape. Brain: No intracranial masses or hemorrhage. Graham/white matter interface is normal. Brainstem appears normal. Diffusion-weighted images demonstrate no acute ischemic insult. No chronic ischemic insults. Normal intravascular flow voids are present. Skull and face: Calvarium has normal marrow signal. Orbits appear normal. Sinuses: Sinuses and mastoids are clear. IMPRESSION: No significant abnormality. Dictated by: Maximo Barnes M.D. on 08/03/2021 at 19:15 Approved by: Maximo Barnes M.D. on 08/03/2021 at 19:16
--- NOTE | 2021-08-03 17:24 | P.HP_ITS ---
History of Present Illness History of Present Illness Date Patient Seen: 08/03/21 Time Patient Seen: 17:24 Chief complaint: Stroke like symptoms, high bp Narrative: The patient is a 56-year-old male with a history of hypertension, hyperlipidemia, coronary disease, who was in his usual state of health until about a week ago. The patient does report having a history of migraine headache. He has not had a migraine headache per se for the past 30 years. Last week he had a dental procedure, he was noted to have some infection involving the come in to of the left jaw. He started amoxicillin about 1 day ago. The patient has also been reporting increasing severe headache. He describes it as a constant headache left-sided associated with blurred vision. He has had no loss of vision associated, no floaters no spots, but he has had associated nausea. He was evaluated in the emergency room. He was found to be markedly hypertensive with a systolic of greater than 200. Hydrochlorothiazide was added to his regimen. He was given pain medication for his headache. Patient did undergo a head CT on July 30 which was negative. He had a repeat head CT today also negative. He had a CTA of his head and neck both of which are negative. The patient is admitted to the hospital at this time for treatment of his hypertensive urgency and further evaluation of headache. Patient describes the headache as dull and constant. It seems to subside from 8/10 to 4/10 when he takes Excedrin migraine for it. He denies any shortness of breath chest pain palpitations hematemesis melena or bright red blood per rectum. Does complain of some pain over the left tierney related to recent injury when getting out of his truck. Patient History Medical History Coronary artery disease Heart palpitations Hypertension Family & Social History Family History (Updated 08/03/21 @ 17:27 by Melisa Reece MD) Mother Myocardial infarction Brother Myocardial infarction Sister Myocardial infarction Social History: lives independently Yes Safety & Behavioral: Feels Safe in Current Yes Environment Been Physically Hurt or No Threatened By a Person Tobacco & Substance use: Smoking Status Former smoker alcohol intake frequency 0-2 drinks per day Substance Use Type does not use Meds Home Medications and Allergies Home Medications Medication Instructions Recorded Confirmed Type clopidogrel 75 mg tablet (Plavix) 75 mg PO QDAY #0 06/09/17 08/03/21 History metoprolol tartrate 50 mg tablet 50 mg PO BID #0 06/09/17 08/03/21 History hydrochlorothiazide 25 mg tablet 25 mg PO DAILY #30 tab 08/02/21 08/03/21 Rx amoxicillin 500 mg capsule 500 mg PO TID 08/03/21 08/03/21 History birbwha-lkucgxsuhvflw-wbeowkud 250 1 tab PO Q4-6H PRN 08/03/21 08/03/21 History mg-250 mg-65 mg tablet (Excedrin Migraine) ketorolac 10 mg tablet 10 mg PO Q6H 08/03/21 08/03/21 History Allergies Allergy/AdvReac Type Severity Reaction Status Date / Time No Known Drug Allergies Allergy Verified 08/02/21 17:51 Exam Vital Signs (past 8 hours): - 08/03/21 13:20 08/03/21 13:30 08/03/21 13:33 Temperature 97.8 F Pulse Rate 67 67 65 Respiratory Rate 18 16 15 Blood Pressure 199/101 H 178/97 H Pulse Oximetry 98 99 96 08/03/21 14:00 08/03/21 14:21 08/03/21 14:30 Temperature Pulse Rate 64 69 73 Respiratory Rate 19 15 25 H Blood Pressure 209/102 H Pulse Oximetry 95 95 93 08/03/21 14:45 08/03/21 14:49 08/03/21 14:52 Temperature Pulse Rate 71 79 69 Respiratory Rate 25 H 15 Blood Pressure 209/102 H 159/90 H Pulse Oximetry 94 93 08/03/21 15:00 08/03/21 15:15 08/03/21 15:30 Temperature Pulse Rate 70 67 64 Respiratory Rate 20 15 15 Blood Pressure 194/96 H 203/97 H 190/91 H Pulse Oximetry 95 93 93 08/03/21 16:01 08/03/21 16:10 Temperature 97.9 F Pulse Rate 62 Respiratory Rate 20 Blood Pressure 163/89 H 176/104 H Pulse Oximetry 93 Oxygen Delivery Method Room Air Objective Labs Result Diagrams: 08/03/21 13:45 08/03/21 13:45 Labs: Laboratory Results - last 24 hr 08/03/21 08/03/21 08/03/21 13:45 13:45 14:48 WBC 7.9 RBC 5.66 Hgb 17.2 Hct 48.8 MCV 86.1 MCH 30.3 MCHC 35.2 RDW 13.7 Plt Count 305 Neut % (Auto) 60.7 Lymph % (Auto) 25.8 Schley % (Auto) 9.8 Eos % (Auto) 2.6 Baso % (Auto) 1.1 Neut # (Auto) 4800 Lymph # (Auto) 2000 Schley # (Auto) 800 Eos # (Auto) 200 Baso # (Auto) 100 Sodium 140 Potassium 4.2 Chloride 103 Carbon Dioxide 26 BUN 14 Creatinine 0.84 Estimated GFR > 60.0 BUN/Creatinine Ratio 16.7 Glucose 109 H Calcium 10.1 Total Bilirubin 0.8 AST 29 ALT 34 Alkaline Phosphatase 53 Total Creatine Kinase 50 L CK-MB (CK-2) TNP CK-MB (CK-2) Rel Index TNP Troponin I < 0.012 Total Protein 9.0 H Albumin 5.1 H Globulin 3.9 Albumin/Globulin Ratio 1.3 Lipase 358 H SARS-CoV-2 (PCR) Negative Assessment & Plan Assessment & Plan narrative: 56-year-old male with a history of coronary disease, status post stenting x2, hypertension, hyperlipidemia, remote history of migraine headache admitted to the hospital for hypertensive urgency and recurrent headache * Patient reports blood pressures usually run 140s to 150s, however he has not been checking it regularly * He has been compliant with his home medications to include metoprolol b.i.d. * Despite this he has systolic blood pressures of greater than 200 with associated headache, and blurred vision * His CT scan x2 in the emergency room is negative * At this time will start metoprolol 50 b.i.d., and amlodipine 10 mg daily, continue hydrochlorothiazide 25 mg daily * Given persistent headache and blurred vision will obtain a head MRI * Patient will be started on Fioricet for his tension/migraine headache Hyperlipidemia * Patient with known hyperlipidemia, he was previously on a statin but discontinued it as he developed leg cramping * Will obtain a fasting lipid profile in the morning and discuss treatment History of coronary disease, status post coronary artery stent * Continue Plavix * Continue beta-edsiree * Will await lipid profile * DVT prophylaxis I have utilized all available methods to review update and confirm the patient's current medication Patient's is his surrogate decision maker. He indicates he would like to be a full code will note that his record accordingly Time Spent With Patient Critical Care time: I spent a total of [] minutes of critical care time on this patient's care today; this time is exclusive of procedural time.
[2021-08-03] MEDS: AMOXICILLIN 250 MG CAPSULE 500 MG PO ×2 (18:08→23:16)
[2021-08-03] MEDS: KETOROLAC 30 MG/ML VIAL 15 MG IV ×2 (18:09→23:14)
[2021-08-03] MEDS: AMLODIPINE 5 MG TABLET 10 MG PO (18:09)
[2021-08-03] MEDS: METOPROLOL ER 50 MG TABLET PO (20:35)
[2021-08-03] MEDS: CLOPIDOGREL 75 MG TABLET PO (21:07)
[2021-08-04] VITALS (7 sets, daily range): BP systolic 128–161; BP diastolic 80–93; PULSE 65–68; RESP 16–18; TEMP 36.3–36.7; O2SAT 94–98
[2021-08-04] MEDS: KETOROLAC 30 MG/ML VIAL 15 MG IV (05:02)
[2021-08-04 06:53] LABS: BUN Creatinine Ratio 20.2 (6-22); Blood Urea Nitrogen 19 mg/dL (9-20); Calcium 9.6 mg/dL (8.4-10.2); Carbon Dioxide 25 mmol/L (22-32); Chloride 104 mmol/L (98-107); Estimated Glomerular Filt Rate > 60.0 mL/min (>60); Glucose 126 mg/dL (70-100); HEMOLYSIS < 15 (0-50); Potassium 3.9 mmol/L (3.4-5.1); Sodium 138 mmol/L (137-145)
[2021-08-04 07:04] LABS: Cholesterol 246 mg/dL (140-199); HDL Cholesterol 30 mg/dL (40-60); LDL Cholesterol Calculated 158 mg/dL (<100); Triglycerides 290 mg/dL (35-150)
--- NOTE | 2021-08-04 08:21 | P.DS_ITS ---
History of Present Illness History of Present Illness Chief complaint: Stroke like symptoms, high bp Narrative: The patient is a 56-year-old male with a history of hypertension, hyperlipidemia, coronary disease, who was in his usual state of health until about a week ago. The patient does report having a history of migraine headache. He has not had a migraine headache per se for the past 30 years. Last week he had a dental procedure, he was noted to have some infection involving the come in to of the left jaw. He started amoxicillin about 1 day ago. The patient has also been reporting increasing severe headache. He describes it as a constant headache left-sided associated with blurred vision. He has had no loss of vision associated, no floaters no spots, but he has had associated nausea. He was evaluated in the emergency room. He was found to be markedly hypertensive with a systolic of greater than 200. Hydrochlorothiazide was added to his regimen. He was given pain medication for his headache. Patient did undergo a head CT on July 30 which was negative. He had a repeat head CT today also negative. He had a CTA of his head and neck both of which are negative. The patient is admitted to the hospital at this time for treatment of his hypertensive urgency and further evaluation of headache. Patient describes the headache as dull and constant. It seems to subside from 8/10 to 4/10 when he takes Excedrin migraine for it. He denies any shortness of breath chest pain palpitations hematemesis melena or bright red blood per rectum. Does complain of some pain over the left tierney related to recent injury when getting out of his truck. Discharge Providers Provider Date of admission: 08/03/21 15:22 Discharge Date: 08/04/21 Discharge provider: Melisa Reece MD Summary Hospital Course Discharge Diagnosis: 1. Hypertensive urgency 2. Headache, tension versus migraine headache 3. Hyperlipidemia 4. CAD s/p Myocardial infarction and stent placement 5. Tooth abscess Hospital Course: Patient was admitted to the hospital for treatment of hypertensive urgency. He was continued on his metoprolol at 50 b.i.d., and hydrochlorothiazide. Amlodipine 10 mg per day was added to his regimen. Blood pressure improved to 128/80. The patient did receive Fioricet for headache. The headache improved. He did undergo a head MRI given complaints of blurred vision and persistent headache. The MRI of the brain was negative. Patient had a fasting lipid profile obtained. His total cholesterol is 246, LDL 158, triglycerides 290, HDL of 30. Patient was agreeable to start a statin. He will also be prescribed baby aspirin per day. He will be switched from the Excedrin migraine to Fioricet for headache. In addition he will be referred to a primary care pr ovider in the [place] area. Patient is asked to follow-up with Optometry or Ophthalmology regarding double vision. Patient is deemed appropriate for discharge home Status at Discharge Cognitive/behavioral status at discharge: oriented Functional status at discharge: independent ambulation Overall status at discharge: patient is progressing back to baseline Exam Vital Signs (past 8 hours): - 08/04/21 01:00 08/04/21 04:30 08/04/21 05:00 Temperature 98.0 F Pulse Rate 65 Respiratory Rate 16 Blood Pressure 128/80 Pulse Oximetry 94 97 97 Oxygen Delivery Method Room Air Oxygen Flow Rate 0 Narrative Exam Narrative: Pleasant male lying in bed Resp Other: Lungs clear to auscultation Cardio Other: Cardiac exam: Regular rate and rhythm normal S1-S2 GI Other: Abdomen: Soft nontender nondistended Extrem Other: Extremities: No edema Objective Labs Result Diagrams: 08/03/21 13:45 08/04/21 06:23 Labs: Laboratory Results - last 24 hr 08/03/21 08/03/21 08/03/21 13:45 13:45 14:48 WBC 7.9 RBC 5.66 Hgb 17.2 Hct 48.8 MCV 86.1 MCH 30.3 MCHC 35.2 RDW 13.7 Plt Count 305 Neut % (Auto) 60.7 Lymph % (Auto) 25.8 [place] % (Auto) 9.8 Eos % (Auto) 2.6 Baso % (Auto) 1.1 Neut # (Auto) 4800 Lymph # (Auto) 2000 [place] # (Auto) 800 Eos # (Auto) 200 Baso # (Auto) 100 Sodium 140 Potassium 4.2 Chloride 103 Carbon Dioxide 26 BUN 14 Creatinine 0.84 Estimated GFR > 60.0 BUN/Creatinine Ratio 16.7 Glucose 109 H Calcium 10.1 Total Bilirubin 0.8 AST 29 ALT 34 Alkaline Phosphatase 53 Total Creatine Kinase 50 L CK-MB (CK-2) TNP CK-MB (CK-2) Rel Index TNP Troponin I < 0.012 Total Protein 9.0 H Albumin 5.1 H Globulin 3.9 Albumin/Globulin Ratio 1.3 Triglycerides Cholesterol LDL Cholesterol, Calc HDL Cholesterol Lipase 358 H SARS-CoV-2 (PCR) Negative 08/04/21 08/04/21 06:23 06:23 WBC RBC Hgb Hct MCV MCH MCHC RDW Plt Count Neut % (Auto) Lymph % (Auto) [place] % (Auto) Eos % (Auto) Baso % (Auto) Neut # (Auto) Lymph # (Auto) [place] # (Auto) Eos # (Auto) Baso # (Auto) Sodium 138 Potassium 3.9 Chloride 104 Carbon Dioxide 25 BUN 19 Creatinine 0.94 Estimated GFR > 60.0 BUN/Creatinine Ratio 20.2 Glucose 126 H Calcium 9.6 Total Bilirubin AST ALT Alkaline Phosphatase Total Creatine Kinase CK-MB (CK-2) CK-MB (CK-2) Rel Index Troponin I Total Protein Albumin Globulin Albumin/Globulin Ratio Triglycerides 290 H Cholesterol 246 H LDL Cholesterol, Calc 158 H HDL Cholesterol 30 L Lipase SARS-CoV-2 (PCR) [facility] Medical History Coronary artery disease Heart palpitations Hypertension Family History (Updated 08/03/21 @ 17:27 by Melisa Reece MD) Mother Myocardial infarction Brother Myocardial infarction Sister Myocardial infarction Social History marital status: lives independently: Yes Smoking Status: Former smoker Discharge Assessment & Plan Assessment and Plan Assessment: Hypertensive urgency 2. Headache, tension versus migraine headache 3. Hyperlipidemia 4. CAD s/p Myocardial infarction and stent placement 5. Tooth abscess Plan of Treatment: Medications as prescribed Referral to primary care in [place] Discharge home Discharge Plan Discharge Plan Patient Disposition: Home Discharge orders & Medications Prescriptions: New aujoztqqcy-lwjtrwcppdxqb-wucb 50-325-40 mg Tablet 1 ea PO Q4HR PRN (Reason: Headache) Qty: 20 0RF amlodipine [Norvasc] 5 mg Tablet 10 mg PO DAILY Qty: 30 0RF Continued metoprolol tartrate 50 MG tablet 50 mg PO BID Qty: 0 0RF clopidogrel [Plavix] 75 MG tablet 75 mg PO QDAY Qty: 0 0RF amoxicillin 500 mg Capsule 500 mg PO TID 0RF Label Comments: TID for 10 days hydrochlorothiazide 25 mg tablet 25 mg PO DAILY Qty: 30 0RF Discontinued Excedrin Migraine 250-250-65 mg Tablet 1 tab PO Q4-6H PRN (Reason: Head ache) 0RF ketorolac 10 mg tablet 10 mg PO Q6H 0RF Label Comments: TAKE ONE TABLET BY MOUTH EVERY SIX HOURS as needed for pain Discharge Health Status Multidrug resistant organism: No MDRO Diet/Activity/Treatments Diet: Low-sodium and Low-cholesterol Discharge Data Attending Provider: Melisa Reece
[2021-08-04] MEDS: AMLODIPINE 5 MG TABLET 10 MG PO (08:23)
[2021-08-04] MEDS: hydroCHLOROthiazide 25 MG TABLET PO (08:23)
[2021-08-04] MEDS: METOPROLOL ER 50 MG TABLET PO (08:23)
[2021-08-04] MEDS: ENOXAPARIN 40 MG/0.4 ML SYRINGE SUBCUT (08:23)
[2021-08-04] MEDS: AMOXICILLIN 250 MG CAPSULE 500 MG PO (08:23)
--- NOTE | 2021-08-04 09:50 | PC.NURSE ---
dc instructions given. paper work given. IV removed.
== END 2021-08-04 09:50 | disposition home or self-care (01) ==
LOC: ED 15:20 → AC 15:23
PROVIDERS: Admitting Provider Internal Medicine; Emergency Provider Emergency Medicine; Referring Provider Emergency Medicine; Visit Provider Internal Medicine
DX: I16.0 Hypertensive urgency (principal); R51.9 Headache, unspecified; H53.8 Other visual disturbances; I25.10 Atherosclerotic heart disease of native coronary artery without angina pectoris; E78.5 Hyperlipidemia, unspecified; K04.7 Periapical abscess without sinus; Z95.5 Presence of coronary angioplasty implant and graft; Z20.822 Contact with and (suspected) exposure to COVID-19; Z87.891 Personal history of nicotine dependence
CPT/HCPCS: 36415; 70450; 70496; 70498; 70551; 80048; 80053; 80061; 82550; 83690; 84484; 85025; 87635; 93005; 93010; 96372; 96374; 96375; 96376; 99284; C9803; G0378; J1650; J1885

== ENCOUNTER 2021-12-30 09:26 | Emergency (ER) | payer OTHER, SELFPAY ==
[2021-08-03 15:57] VITALS: BMI 32.5
[2021-12-30 09:27] VITALS: TEMP 37.1
--- NOTE | 2021-12-30 09:31 | DI.RAD.S_ITS ---
PROCEDURE: XR CHEST 1V INDICATIONS: chest pain TECHNIQUE: One view of the chest was acquired. COMPARISON: None. FINDINGS: Surgical changes and devices: None. Lungs and pleura: Streaky opacity at the right lung base. Bilateral hazy opacity. No consolidation. No pleural effusions or pneumothorax. Mediastinum: Mediastinal contours appear normal. Heart size is normal. Bones and chest wall: No suspicious bony lesions. Overlying soft tissues appear unremarkable. IMPRESSION: Streaky opacity at the right lung base. Bilateral hazy opacity. Favor atelectasis over infectious/inflammatory etiology. Superimposed pulmonary vasculature engorgement could have a similar appearance. Dictated by: Gopi Al M.D. on 12/30/2021 at 9:53 Approved by: Gopi Al M.D. on 12/30/2021 at 9:54
--- NOTE | 2021-12-30 09:36 | ED_ITS ---
HPI - Chest Pain General Chief Complaint: Chest Pain Stated Complaint: thinks heart attack- has stint Time Seen by Provider: 12/30/21 09:31 History of Present Illness HPI narrative: Patient is a 56-year-old male history of hypertension, coronary artery disease with stent placed 10 years ago in [place] presenting today with chest discomfort. He says he took a trash can up the driveway noticed he did feel quite good drove the car to [employer] when he had dull achy chest pain going thro ugh to his back. Overall feels a heaviness on his chest appears pale. Related Data Home Medications Medication Instructions Recorded Confirmed clopidogrel 75 mg tablet (Plavix) 75 mg PO QDAY ##0 06/09/17 08/03/21 metoprolol tartrate 50 mg tablet 50 mg PO BID ##0 06/09/17 08/03/21 amoxicillin 500 mg capsule 500 mg PO TID 08/03/21 08/03/21 Previous Rx's Medication Instructions Recorded hydrochlorothiazide 25 mg tablet 25 mg PO DAILY #30 tabs 08/02/21 amlodipine 5 mg tablet (Norvasc) 10 mg PO DAILY #30 tabs 08/04/21 ggqdyineun-cbgxmirxnakkl-nfugwcpa 1 ea PO Q4HR PRN Headache #20 tabs 08/04/21 50 mg-325 mg-40 mg tablet Allergies Allergy/AdvReac Type Severity Reaction Status Date / Time No Known Drug Allergies Allergy Verified 12/30/21 10:04 Review of Systems Review of Systems Narrative: GENERAL: Denies chills, fatigue, malaise, fever, sweats, travel HEENT: Denies sinus pain, ear pain, sore throat, difficulty swallowing, neck pain RESPIRATORY: Denies dyspnea, cough, wheezing, hemoptysis, sputum. CARDIOVASCULAR: See HPI GASTROINTESTINAL: Denies nausea, vomiting, abdominal pain, diarrhea, constipation, melena. : Denies dysuria, frequency, incontinence, hematuria, urinary retention, flank pain. MUSCULOSKELETAL: Denies weakness, joint pain, or bony pain SKIN: No rash, no erythema, no pruritus NEUROLOGIC: Denies weakness, dizziness, headache, numbness, change in speech, confusion PSYCHIATRIC: No concerning psychosocial issues. 12 point review of systems is negative except for those stated above and HPI Patient History Medical History Coronary artery disease Heart palpitations Hypertension Family History Mother Myocardial infarction Brother Myocardial infarction Sister Myocardial infarction Social History marital status: lives independently: Yes Smoking Status: Former smoker Smoking Status: Former smoker alcohol intake frequency: 0-2 drinks per day Substance Use Type: does not use Exam Initial Vital Signs Initial Vital Signs: Vital Signs Temperature 98.7 F 12/30/21 09:27 GENERAL: Alert slightly pale uncomfortable 56-year-old male appears in moderate distress HEENT: Head atraumatic,EOMI, pupils reactive, face symmetric, moist mucous membranes CARDIOVASCULAR: Regular rate and rhythm without murmurs, rubs or gallops. RESPIRATORY: Breath sounds equal bilaterally, no wheezes rales or rhonchi. ABDOMEN: Soft, nontender. Normoactive bowel sounds all 4 quadrants. No guarding or rebound. EXTREMITIES: Normal range of motion, no clubbing or edema. Neurovascularly intact NEUROLOGICAL: Alert and oriented x4.Normal gait and speech. SKIN: Warm, dry, no laceration, no petechiae, no rashes or lesions. Course Orders Ordered: ED Orders 12/30/21 09:30 Complete Blood Count AUTO DIFF Stat Comprehensive Metabolic Panel Stat Lipase Stat NT-proBNP (BNP-Adult 18+) Stat Partial Thromboplastin Time Stat Prothrombin Time INR Stat Troponin & CK Cardiac Panel Stat 12/30/21 09:31 XR chest 1V Stat EKG-12 Lead Stat 12/30/21 09:40 COVID19 -Nasal RAPID/Pre-Proc Stat Discontinued Medications Aspirin (Aspirin 81 Mg Chew Tab) 324 mg PO NOW ONE Stop: 12/30/21 09:32 Last Admin: 12/30/21 09:41 Dose: 324 mg Documented By: COLTON Heparin Sodium (Porcine) (Heparin 5,000 Unit/Ml Vial) 5,000 unit IV NOW ONE Stop: 12/30/21 09:34 Last Admin: 12/30/21 09:38 Dose: 5,000 unit Documented By: COLTON Sodium Chloride (Normal Saline 0.9%) 1,000 mls @ 150 mls/hr IV CONT ANTONIA Last Infusion: 12/30/21 09:57 Dose: 0 mls/hr Documented By: Admin: 12/30/21 09:56 Dose: 150 mls/hr Documented By: COLTON Heparin Sodium/Dextrose (Heparin Drip) 25,000 unit in 500 mls @ 20 mls/hr IV CONT ANTONIA; Protocol Last Titration: 12/30/21 09:56 Dose: 0 units/hr, 0 mls/hr Documented By: Admin: 12/30/21 09:39 Dose: 1,000 units/hr, 20 mls/hr Documented By: COLTON Nitroglycerin (Nitroglycerin) 50 mg in 250 mls @ 1.5 mls/hr IV TITRATE ANTONIA; Protocol Last Titration: 12/30/21 09:57 Dose: 0 mcg/min, 0 mls/hr Documented By: Admin: 12/30/21 09:48 Dose: 5 mcg/min, 1.5 mls/hr Documented By: COLTON Nitroglycerin (Nitroglycerin 0.4 Mg Sl Tab) 0.4 mg SL [id number] PRN PRN Reason: Chest Pain Last Admin: 12/30/21 09:46 Dose: 0.4 mg Documented By: Admin: 12/30/21 09:42 Dose: 0.4 mg Documented By: COLTON Vital Signs Vital signs: Vital Signs - 8 hr 12/30/21 09:40 12/30/21 09:41 12/30/21 09:41 Temperature Pulse Rate 73 71 Respiratory Rate 25 H 18 Blood Pressure 189/97 H Pulse Oximetry 97 98 12/30/21 09:44 12/30/21 09:45 12/30/21 09:45 Temperature Pulse Rate 68 72 Respiratory Rate 16 17 Blood Pressure 165/84 H Pulse Oximetry 97 96 12/30/21 09:50 12/30/21 09:50 12/30/21 09:27 Temperature 98.7 F Pulse Rate 69 Respiratory Rate 24 Blood Pressure 159/95 H Pulse Oximetry 94 MDM - Chest Pain Lab Data Result diagrams: 12/30/21 09:30 12/30/21 09:30 Labs: Lab Results 12/30/21 12/30/21 12/30/21 Range/Units 09:30 09:30 09:30 WBC 13.0 H (4.5-11.0) X10^3/uL RBC 5.74 (4.5-5.9) X10^6/uL Hgb 16.9 (13.5-17.5) g/dL Hct 49.8 (41-53) % MCV 86.7 (80-100) fL MCH 29.5 (26-34) PG MCHC 34.0 (30-36) % RDW 13.7 (11.6-14.8) % Plt Count 322 (150-400) X10^3/uL Neut % (Auto) 47.9 L (50-75) % Lymph % (Auto) 38.2 (25-40) % [place] % (Auto) 10.4 (3-14) % Eos % (Auto) 2.9 (2-4) % Baso % (Auto) 0.6 (0-2) % Neut # (Auto) 6200 (9444-7159) /uL Lymph # (Auto) 5000 H (0471-9488) /uL [place] # (Auto) 1400 H (0-900) /uL Eos # (Auto) 400 (0-450) /uL Baso # (Auto) 100 (0-100) /uL PT 11.7 (10.1-12.7) SECONDS INR 1.0 (0.9-1.3) APTT 31 (26.4-36.2) SECONDS Sodium 139 (137-145) mmol/L Potassium 3.7 (3.4-5.1) mmol/L Chloride 106 (98-107) mmol/L Carbon Dioxide 21 L (22-32) mmol/L BUN 17 (9-20) mg/dL Creatinine 0.87 (0.66-1.25) mg/dL Estimated GFR > 60 (>60) mL/min BUN/Creatinine Ratio 19.5 (6-22) Glucose 134 H (70-100) mg/dL Calcium 9.2 (8.4-10.2) mg/dL Total Bilirubin 0.7 (0.2-1.3) mg/dL AST 30 (17-59) IU/L ALT 30 (<50) IU/L Alkaline Phosphatase 60 (38-126) U/L Total Creatine Kinase 73 (55-170) U/L CK-MB (CK-2) TNP CK-MB (CK-2) Rel Index TNP Troponin I < 0.012 (0.01-0.034) ng/mL NT-Pro-B Natriuret Pep 31 (<125) pg/mL Total Protein 8.2 (6.3-8.2) g/dL Albumin 4.4 (3.5-5.0) g/dL Globulin 3.8 (1.7-4.1) g/dL Albumin/Globulin Ratio 1.2 (1.0-2.8) Lipase 754 H (23-300) U/L SARS-CoV-2 (PCR) (Negative) 12/30/21 Range/Units 09:40 WBC (4.5-11.0) X10^3/uL RBC (4.5-5.9) X10^6/uL Hgb (13.5-17.5) g/dL Hct (41-53) % MCV (80-100) fL MCH (26-34) PG MCHC (30-36) % RDW (11.6-14.8) % Plt Count (150-400) X10^3/uL Neut % (Auto) (50-75) % Lymph % (Auto) (25-40) % [place] % (Auto) (3-14) % Eos % (Auto) (2-4) % Baso % (Auto) (0-2) % Neut # (Auto) (4703-1351) /uL Lymph # (Auto) (0327-0689) /uL [place] # (Auto) (0-900) /uL Eos # (Auto) (0-450) /uL Baso # (Auto) (0-100) /uL PT (10.1-12.7) SECONDS INR (0.9-1.3) APTT (26.4-36.2) SECONDS Sodium (137-145) mmol/L Potassium (3.4-5.1) mmol/L Chloride (98-107) mmol/L Carbon Dioxide (22-32) mmol/L BUN (9-20) mg/dL Creatinine (0.66-1.25) mg/dL Estimated GFR (>60) mL/min BUN/Creatinine Ratio (6-22) Glucose (70-100) mg/dL Calcium (8.4-10.2) mg/dL Total Bilirubin (0.2-1.3) mg/dL AST (17-59) IU/L ALT (<50) IU/L Alkaline Phosphatase (38-126) U/L Total Creatine Kinase (55-170) U/L CK-MB (CK-2) CK-MB (CK-2) Rel Index Troponin I (0.01-0.034) ng/mL NT-Pro-B Natriuret Pep (<125) pg/mL Total Protein (6.3-8.2) g/dL Albumin (3.5-5.0) g/dL Globulin (1.7-4.1) g/dL Albumin/Globulin Ratio (1.0-2.8) Lipase (23-300) U/L SARS-CoV-2 (PCR) Negative (Negative) Imaging Data Chest x-ray: Radiologist's Impression: Signed Patient: Felipe Petersen MR#: [id number] : 1965 Acct:[id number] Age/Sex: 56 / M Date of Service: 12/30/21 Loc: ED Accession Number: [id number] ?? Procedure: XR chest 1V Ordering Provider: Carolyn Rodriguez D.O. PROCEDURE:? XR CHEST 1V ? INDICATIONS:? chest pain ? TECHNIQUE:? One view of the chest was acquired.? ? COMPARISON:? None. ? FINDINGS:? ? Surgical changes and devices:? None.? ? Lungs and pleura:? Streaky opacity at the right lung base.? Bilateral hazy opacity.? No consolidation.? No pleural effusions or pneumothorax.? ? Mediastinum:? Mediastinal contours appear normal.? Heart size is normal.? ? Bones and chest wall:? No suspicious bony lesions.? Overlying soft tissues appear unremarkable.? ? IMPRESSION:? Streaky opacity at the right lung base.? Bilateral hazy opacity.? Favor atelectasis over infectious/inflammatory etiology.? Superimposed pulmonary vasculature engorgement could have a similar appearance. ? ? Dictated by: Gopi Al M.D. on 12/30/2021 at 9:53 ? ? ECG Data Interpretation: ST elevation 2 3 AVF with reciprocal depression 1 aVL be 1 in V2 MDM Narrative Medical decision making narrative: Patient presents as a inferior STEMI. He is already taking metoprolol he is given aspirin heparin and nitroglycerin. Dr. Freeman has [facility] updated on symptoms test results and kindly accepts patient Critical Care Time Critical Care Time Critical Care Time: Yes Total Critical Care Time: 31 Attestation: The high probability of a clinically significant, sudden or life threatening deterioration of the [cardiovascular] system(s) required my full and direct attention, intervention and personal management. The aggregate critical care time was 31 minutes. This time is in addition to time spent performing reported procedures but includes the following: [x] Data Review and interpretation [x] Patient assessment and monitoring of vital signs [x] Documentation [x] Medication orders and management Discharge Plan Departure Patient Disposition: [facility] Clinical Impression: ST elevation MN (STEMI) Prescriptions: No Action metoprolol tartrate 50 MG tablet 50 mg PO BID Qty: 0 clopidogrel [Plavix] 75 MG tablet 75 mg PO QDAY Qty: 0 amoxicillin 500 mg Capsule 500 mg PO TID Label Comments: TID for 10 days amlodipine [Norvasc] 5 mg Tablet 10 mg PO DAILY Qty: 30 0RF atkapwhtux-odqpnbrvvlecu-zwnm 50-325-40 mg Tablet 1 ea PO Q4HR PRN (Reason: Headache) Qty: 20 0RF hydrochlorothiazide 25 mg tablet 25 mg PO DAILY Qty: 30 0RF
[2021-12-30] MEDS: HEPARIN 5,000 UNIT/ML VIAL 5000 UNIT IV (09:38)
[2021-12-30] MEDS: HEPARIN DRIP 25,000 UNIT/500 ML IV.SOLN 20 UNIT IV (09:39)
[2021-12-30 09:40] VITALS: PULSE 73; RESP 25; O2SAT 97
[2021-12-30 09:41] VITALS: BP 189/97; PULSE 71; RESP 18; O2SAT 98
[2021-12-30] MEDS: ASPIRIN 81 MG CHEW TAB 324 MG PO (09:41)
[2021-12-30] MEDS: NITROGLYCERIN 0.4 MG SL TAB SL ×2 (09:42→09:46)
[2021-12-30 09:44] VITALS: PULSE 68; RESP 16; O2SAT 97
[2021-12-30 09:45] VITALS: BP 165/84; PULSE 72; RESP 17; O2SAT 96
[2021-12-30] MEDS: NITROGLYCERIN 50 MG/250 ML INFUS..BTL IV (09:48)
[2021-12-30 09:50] VITALS: BP 159/95; PULSE 69; RESP 24; O2SAT 94
[2021-12-30 09:53] LABS: Add Manual Diff / Slide Review NO; Basophils Absolute Auto 100 /uL (0-100); Basophils Percent Auto 0.6 % (0-2); Eosinophils Absolute Auto 400 /uL (0-450); Eosinophils Percent Auto 2.9 % (2-4); Hematocrit 49.8 % (41-53); Hemoglobin 16.9 g/dL (13.5-17.5); Lymphocytes Absolute Auto 5000 /uL (1100-4500); Lymphocytes Percent Auto 38.2 % (25-40); Mean Corpuscular Hemoglobin 29.5 PG (26-34); Mean Corpuscular Volume 86.7 fL (80-100); Monocytes Absolute Auto 1400 /uL (0-900); Monocytes Percent Auto 10.4 % (3-14); Neutrophils Absolute Auto 6200 /uL (1500-7000); Neutrophils Percent Auto 47.9 % (50-75); Platelet Count 322 X10^3/uL (150-400); Red Blood Cell Count 5.74 X10^6/uL (4.5-5.9); Red Cell Distribution Width 13.7 % (11.6-14.8)
[2021-12-30] MEDS: SODIUM CHLORIDE 0.9% 1,000 ML 150 ML IV (09:56)
--- NOTE | 2021-12-30 09:57 | PC.NURSE ---
All drips continued by EMS
[2021-12-30 09:58] LABS: Prothrombin Time 11.7 SECONDS (10.1-12.7)
[2021-12-30 09:59] LABS: COVID19 -Nasal RAPID Negative (Negative)
[2021-12-30 10:01] LABS: PTT Partial Thromboplastin Tim 31 SECONDS (26.4-36.2)
[2021-12-30 10:05] LABS: Alanine Aminotransferase 30 IU/L (<50); Albumin 4.4 g/dL (3.5-5.0); Albumin Globulin Ratio 1.2 (1.0-2.8); Alkaline Phosphatase 60 U/L (38-126); Aspartate Aminotransferase 30 IU/L (17-59); BUN Creatinine Ratio 19.5 (6-22); Bilirubin Total 0.7 mg/dL (0.2-1.3); Blood Urea Nitrogen 17 mg/dL (9-20); Calcium 9.2 mg/dL (8.4-10.2); Carbon Dioxide 21 mmol/L (22-32); Chloride 106 mmol/L (98-107); Creatine Kinase 73 U/L (55-170); Estimated Glomerular Filt Rate > 60 mL/min (>60); Globulin 3.8 g/dL (1.7-4.1); Glucose 134 mg/dL (70-100); HEMOLYSIS 17 (0-50); Lipase 754 U/L (23-300); Potassium 3.7 mmol/L (3.4-5.1); Sodium 139 mmol/L (137-145); Total Protein 8.2 g/dL (6.3-8.2)
[2021-12-30 10:16] LABS: NT-proBNP (BNP-Adult 18+) 31 pg/mL (<125); Troponin I < 0.012 ng/mL (0.01-0.034)
--- NOTE | 2021-12-30 20:14 | PC.NURSE ---
late entry: Meds / fluids as continued w/ EMS transport. Completed for purposes of [facility] documentation only.
== END 2021-12-30 09:55 | disposition short-term general hospital (02) ==
PROVIDERS: Emergency Provider Emergency Medicine
DX: I21.3 ST elevation (STEMI) myocardial infarction of unspecified site (principal); Z95.5 Presence of coronary angioplasty implant and graft; Z20.822 Contact with and (suspected) exposure to COVID-19
CPT/HCPCS: 36415; 71045; 80053; 82550; 83690; 83880; 84484; 85025; 85610; 85730; 87635; 93005; 93010; 96365; 96375; 99284; 99291; C9803; J1644

== ENCOUNTER → 2022-07-03 07:42 | Outpatient (CLI) | payer OTHER, SELFPAY ==
[2021-08-03 15:57] VITALS: BMI 32.5
[2022-07-03 09:06] LABS: Alanine Aminotransferase 32 IU/L (<50); Albumin 4.4 g/dL (3.5-5.0); Albumin Globulin Ratio 1.4 (1.0-2.8); Alkaline Phosphatase 63 U/L (38-126); Aspartate Aminotransferase 27 IU/L (17-59); BUN Creatinine Ratio 19.2 (6-22); Blood Urea Nitrogen 15 mg/dL (9-20); Calcium 9.3 mg/dL (8.4-10.2); Carbon Dioxide 25 mmol/L (22-32); Chloride 104 mmol/L (98-107); Cholesterol 133 mg/dL (140-199); Estimated Glomerular Filt Rate > 60 mL/min (>60); Globulin 3.1 g/dL (1.7-4.1); Glucose 118 mg/dL (70-100); HDL Cholesterol 28 mg/dL (40-60); HEMOLYSIS < 15 (0-50); LDL Cholesterol Calculated 70 mg/dL (<100); Potassium 4.8 mmol/L (3.4-5.1); Sodium 139 mmol/L (137-145); Total Protein 7.5 g/dL (6.3-8.2); Triglycerides 177 mg/dL (35-150)
== END ==
PROVIDERS: PCP Family Medicine; Referring Provider Family Medicine; Visit Provider Family Medicine
DX: E78.5 Hyperlipidemia, unspecified (principal); R73.03 Prediabetes
CPT/HCPCS: 36415; 80053; 80061; 83036

== ENCOUNTER 2022-12-10 16:51 | Emergency (ER) | payer OTHER, SELFPAY ==
[2021-08-03 15:57] VITALS: BMI 32.5
[2022-12-10] VITALS (17 sets, daily range): BP systolic 155–192; BP diastolic 75–111; PULSE 53–91; RESP 11–27; TEMP 36.6; O2SAT 92–97; BMI 29.8
--- NOTE | 2022-12-10 17:02 | DI.RAD.S_ITS ---
PROCEDURE: XR CHEST 1V INDICATIONS: chest pain TECHNIQUE: One view of the chest was acquired. COMPARISON: [facility], CR, XR CHEST 1V, 12/30/2021, 9:37. [facility], CR, XR CHEST 1 VIEW, 08/16/2022, 10:28. FINDINGS: Surgical changes and devices: None. Lungs and pleura: Likely atelectasis can be seen in both lung bases. No pleural effusions or pneumothorax. Mediastinum: Mediastinal contours appear normal. Heart size is normal. Bones and chest wall: No suspicious bony lesions. Age-appropriate bony degenerative changes are seen. Overlying soft tissues appear unremarkable. IMPRESSION: Portable chest within normal limits. Dictated by: Mitul Ochoa M.D. on 12/10/2022 at 16:47 Approved by: Mitul Ochoa M.D. on 12/10/2022 at 16:47
[2022-12-10 17:28] LABS: Alanine Aminotransferase 33 IU/L (<50); Albumin 4.6 g/dL (3.5-5.0); Albumin Globulin Ratio 1.2 (1.0-2.8); Alkaline Phosphatase 46 U/L (38-126); Aspartate Aminotransferase 42 IU/L (17-59); BUN Creatinine Ratio 20.5 (6-22); Bilirubin Total 0.8 mg/dL (0.2-1.3); Blood Urea Nitrogen 17 mg/dL (9-20); Calcium 9.5 mg/dL (8.4-10.2); Carbon Dioxide 24 mmol/L (22-32); Chloride 103 mmol/L (98-107); Creatine Kinase 114 U/L (55-170); Estimated Glomerular Filt Rate > 60 mL/min (>60); Globulin 3.8 g/dL (1.7-4.1); Glucose 123 mg/dL (70-100); HEMOLYSIS 42 (0-50); Lipase 363 U/L (23-300); Magnesium 1.9 mg/dL (1.6-2.3); Potassium 3.8 mmol/L (3.4-5.1); Sodium 138 mmol/L (137-145); Total Protein 8.4 g/dL (6.3-8.2)
[2022-12-10 17:29] LABS: Add Manual Diff / Slide Review NO; Basophils Absolute Auto 100 /uL (0-100); Basophils Percent Auto 0.7 % (0-2); Eosinophils Absolute Auto 400 /uL (0-450); Eosinophils Percent Auto 3.5 % (2-4); Hematocrit 46.4 % (41-53); Hemoglobin 16.3 g/dL (13.5-17.5); Lymphocytes Absolute Auto 3700 /uL (1100-4500); Lymphocytes Percent Auto 31.6 % (25-40); Mean Corpuscular HGB Conc 35.2 % (30-36); Mean Corpuscular Hemoglobin 30.2 PG (26-34); Mean Corpuscular Volume 85.9 fL (80-100); Monocytes Absolute Auto 1200 /uL (0-900); Monocytes Percent Auto 9.9 % (3-14); Neutrophils Absolute Auto 6300 /uL (1500-7000); Neutrophils Percent Auto 54.3 % (50-75); Platelet Count 282 X10^3/uL (150-400); Red Cell Distribution Width 13.5 % (11.6-14.8); White Blood Cell Count 11.7 X10^3/uL (4.5-11.0)
[2022-12-10 17:40] LABS: Troponin I < 0.012 ng/mL (0.01-0.034)
--- NOTE | 2022-12-10 17:43 | PC.NURSE ---
Pt reports he drank a lot of soda today and also was stressed by work.
[2022-12-10 18:00] LABS: INR 1.1 (0.9-1.3); Prothrombin Time 12.6 SECONDS (10.1-12.7)
[2022-12-10 18:02] LABS: PTT Partial Thromboplastin Tim 32 SECONDS (26-36)
--- NOTE | 2022-12-10 18:08 | ED_ITS ---
HPI - Arrhythmia/Palpitations General Chief Complaint: Arrhythmia/Palpitations Stated Complaint: heart racing has a heart condition Time Seen by Provider: 12/10/22 17:04 Source: patient Mode of arrival: Ambulatory History of Present Illness HPI narrative: 57-year-old male former smoker with history of coronary artery disease, prior KS, hypertension, hyperlipidemia presents to the emergency department today with a chief complaint of sudden onset of palpitations that started about 30 minutes prior to his arrival. He states he had been in his normal state of and has been actually doing quite well lately with increased exercise and improved diet. He denies missing any medications other than a single dose of metoprolol today. He states that he had a glass of Pepsi which is not normal for him and then felt palpitations is high as a rate of 100 which made him anxious at which point he proceeded to the emergency department. In December of 2021 he presented initially to our emergency department for chest pain and was found to have an ST elevated KS and was taken to the clinical laboratory science professor at [facility] with discharge diagnosis of inferior wall KS and drug-eluting stent was placed in his RCA. Post catheterization EKG noted resolution of ST elevations but does demonstrate T-wave inversions in 3 and AVF Related Data Previous Rx's Medication Instructions Recorded atorvastatin 10 mg tablet 10 mg PO BEDTIME #90 tabs 01/06/22 losartan 50 mg tablet 50 mg PO DAILY #90 tabs 06/08/22 clopidogrel 75 mg tablet (Plavix) 75 mg PO QDAY #90 tabs 10/03/22 metoprolol tartrate 50 mg tablet 50 mg PO BID #180 tabs 10/03/22 Allergies Allergy/AdvReac Type Severity Reaction Status Date / Time No Known Drug Allergies Allergy Verified 07/05/22 11:01 Review of Systems Review of Systems Narrative: GENERAL: Denies chills, fatigue, malaise, fever, sweats. HEENT: Denies sinus pain, ear pain, sore throat, difficulty swallowing, dizziness. RESPIRATORY: Denies dyspnea, cough, wheezing, hemoptysis, sputum. CARDIOVASCULAR: See HPI GASTROINTESTINAL: Denies nausea, vomiting, abdominal pain, diarrhea, constipation, melena. : Denies dysuria, frequency, incontinence, hematuria, urinary retention. MUSCULOSKELETAL: denies weakness, joint pain, or bony pain SKIN: Denies rash, skin lesions, or other NEUROLOGIC: Denies weakness, headache, numbness, change in speech, confusion, seizures, incoordination. PSYCHIATRIC: No concerning psychosocial issues. 12 point review of systems is negative except for those stated above Patient History Medical History Coronary artery disease Heart palpitations Hyperlipidemia Hypertension Pre-diabetes Preventative health care Family History Mother Myocardial infarction Brother Myocardial infarction Sister Myocardial infarction Social History marital status: lives independently: Yes Smoking Status: Former smoker Smoking Status: Former smoker alcohol intake frequency: 0-2 drinks per day Substance Use Type: does not use Exam Narrative Exam Narrative: GENERAL: [57] year old patient appears stated age. Well-developed patient, in mild distress. HEAD: Atraumatic. Normocephalic. EYES: Pupils equal round and reactive. Extraocular motions intact. No scleral icterus. No injection or drainage. ENT: Nose without bleeding, purulent drainage. Throat without erythema, tonsillar hypertrophy or exudate. Airway patent. NECK: Trachea midline. Non tender CARDIOVASCULAR: Regular rate and rhythm without murmurs, gallops, or rubs. RESPIRATORY: Clear to auscultation. Breath sounds equal bilaterally. No wheezes, rales, or rhonchi. GASTROINTESTINAL: Abdomen soft, non-tender, nondistended. EXTREMITIES: No edema or joint tenderness. BACK: Nontender without deformity or crepitance. No flank tenderness. NEURO: AOx3. SKIN: No rash or erythema of visible areas Initial Vital Signs Initial Vital Signs: Vital Signs Temperature 97.9 F 12/10/22 16:55 Pulse Rate 91 H 12/10/22 16:55 Respiratory Rate 16 12/10/22 16:55 Blood Pressure 181/102 H 12/10/22 16:55 Pulse Oximetry 96 12/10/22 16:55 Oxygen Delivery Method Room Air 12/10/22 16:55 Course Orders Ordered: ED Orders 12/10/22 17:07 EKG-12 Lead Stat 12/10/22 17:35 PTT Partial Thromboplastin Alphonso Stat Prothrombin Time INR Stat 12/10/22 20:51 Troponin & CK Cardiac Panel Stat Consultations Consultation #1: Discussed with on-call Cardiology, Dr. Sanchez Vital Signs Vital signs: Vital Signs - 8 hr 12/10/22 18:30 12/10/22 18:45 12/10/22 18:46 Pulse Rate 65 67 Respiratory Rate 27 H 25 H Blood Pressure 174/85 H Pulse Oximetry 92 92 Oxygen Delivery Method Room Air Room Air 12/10/22 18:46 12/10/22 19:00 12/10/22 19:00 Pulse Rate 67 60 Respiratory Rate 17 11 L Blood Pressure 155/82 H Pulse Oximetry 94 93 Oxygen Delivery Method 12/10/22 19:30 12/10/22 19:30 12/10/22 20:00 Pulse Rate 53 L 58 L Respiratory Rate 14 15 Blood Pressure 161/75 H Pulse Oximetry 94 92 Oxygen Delivery Method Room Air 12/10/22 20:01 12/10/22 20:01 12/10/22 20:30 Pulse Rate 56 L 61 Respiratory Rate 15 16 Blood Pressure 192/111 H Pulse Oximetry 95 92 Oxygen Delivery Method 12/10/22 20:31 12/10/22 20:31 12/10/22 21:57 Pulse Rate 64 60 Respiratory Rate 19 Blood Pressure 155/81 H 161/94 H Pulse Oximetry 94 Oxygen Delivery Method Room Air 12/10/22 21:00 12/10/22 21:00 12/10/22 21:53 Pulse Rate 56 L Respiratory Rate 14 Blood Pressure 166/97 H 161/94 H Pulse Oximetry 94 Oxygen Delivery Method Room Air 12/10/22 21:53 Pulse Rate 60 Respiratory Rate 18 Blood Pressure Pulse Oximetry Oxygen Delivery Method MDM - Arrhythmia/Palpitations Lab Data 12/10/22 17:06 12/10/22 17:06 Labs: Lab Results 12/10/22 12/10/22 12/10/22 Range/Units 17:06 17:06 17:35 WBC 11.7 H (4.5-11.0) X10^3/uL RBC 5.40 (4.5-5.9) X10^6/uL Hgb 16.3 (13.5-17.5) g/dL Hct 46.4 (41-53) % MCV 85.9 (80-100) fL MCH 30.2 (26-34) PG MCHC 35.2 (30-36) % RDW 13.5 (11.6-14.8) % Plt Count 282 (150-400) X10^3/uL Neut % (Auto) 54.3 (50-75) % Lymph % (Auto) 31.6 (25-40) % [place] % (Auto) 9.9 (3-14) % Eos % (Auto) 3.5 (2-4) % Baso % (Auto) 0.7 (0-2) % Neut # (Auto) 6300 (3891-4875) /uL Lymph # (Auto) 3700 (6823-5482) /uL [place] # (Auto) 1200 H (0-900) /uL Eos # (Auto) 400 (0-450) /uL Baso # (Auto) 100 (0-100) /uL PT 12.6 (10.1-12.7) SECONDS INR 1.1 (0.9-1.3) APTT 32 (26-36) SECONDS Sodium 138 (137-145) mmol/L Potassium 3.8 (3.4-5.1) mmol/L Chloride 103 (98-107) mmol/L Carbon Dioxide 24 (22-32) mmol/L BUN 17 (9-20) mg/dL Creatinine 0.83 (0.66-1.25) mg/dL Estimated GFR > 60 (>60) mL/min BUN/Creatinine Ratio 20.5 (6-22) Glucose 123 H (70-100) mg/dL Calcium 9.5 (8.4-10.2) mg/dL Magnesium 1.9 (1.6-2.3) mg/dL Total Bilirubin 0.8 (0.2-1.3) mg/dL AST 42 (17-59) IU/L ALT 33 (<50) IU/L Alkaline Phosphatase 46 (38-126) U/L Total Creatine Kinase 114 (55-170) U/L Troponin I < 0.012 (0.01-0.034) ng/mL Total Protein 8.4 H (6.3-8.2) g/dL Albumin 4.6 (3.5-5.0) g/dL Globulin 3.8 (1.7-4.1) g/dL Albumin/Globulin Ratio 1.2 (1.0-2.8) Lipase 363 H (23-300) U/L 12/10/22 Range/Units 20:51 WBC (4.5-11.0) X10^3/uL RBC (4.5-5.9) X10^6/uL Hgb (13.5-17.5) g/dL Hct (41-53) % MCV (80-100) fL MCH (26-34) PG MCHC (30-36) % RDW (11.6-14.8) % Plt Count (150-400) X10^3/uL Neut % (Auto) (50-75) % Lymph % (Auto) (25-40) % [place] % (Auto) (3-14) % Eos % (Auto) (2-4) % Baso % (Auto) (0-2) % Neut # (Auto) (0199-4105) /uL Lymph # (Auto) (1898-1474) /uL [place] # (Auto) (0-900) /uL Eos # (Auto) (0-450) /uL Baso # (Auto) (0-100) /uL PT (10.1-12.7) SECONDS INR (0.9-1.3) APTT (26-36) SECONDS Sodium (137-145) mmol/L Potassium (3.4-5.1) mmol/L Chloride (98-107) mmol/L Carbon Dioxide (22-32) mmol/L BUN (9-20) mg/dL Creatinine (0.66-1.25) mg/dL Estimated GFR (>60) mL/min BUN/Creatinine Ratio (6-22) Glucose (70-100) mg/dL Calcium (8.4-10.2) mg/dL Magnesium (1.6-2.3) mg/dL Total Bilirubin (0.2-1.3) mg/dL AST (17-59) IU/L ALT (<50) IU/L Alkaline Phosphatase (38-126) U/L Total Creatine Kinase 86 (55-170) U/L Troponin I < 0.012 (0.01-0.034) ng/mL Total Protein (6.3-8.2) g/dL Albumin (3.5-5.0) g/dL Globulin (1.7-4.1) g/dL Albumin/Globulin Ratio (1.0-2.8) Lipase (23-300) U/L MDM Narrative Medical decision making narrative: [57] year old patient presents with palpitations resolved Multiple etiologies for patient's symptoms considered including, but not limited to: [Atrial fibrillation versus SVT versus sinus tachycardia versus other] Prior Charts reviewed in our EMR Primary Historian: patient Labs reviewed and interpreted by myself: No significant abnormal findings requiring intervention Imaging reviewed: Chest x-ray without acute findings Consultations: Discussed with Cardiology (Dr. Sanchez), she has reviewed prior EKGs and states the EKG from today is consistent with prior Patient's history and physical exam are very reassuring and he complains only of a brief episode of palpitations that resolved prior to his arrival. This h appened after a relatively stressful event in in the setting of a caffeinated beverage which is not his typical diet. He denies any chest pain, exertional symptoms, exercise intolerance or other concerning findings. Labs are unremarkable EKG as well as cardiac monitoring sharp sinus rhythm Findings and discharge diagnosis discussed with patient/family followed by verbalization of understanding Return precautions discussed with patient/family whom verbalize understanding of diagnosis and plan Discharge Plan Departure Patient Disposition: Home Clinical Impression: Palpitations Instructions: DI for Palpitations Activity Restrictions/Additional Instructions: *You have been diagnosed with [palpitations] *What to do: *Please continue to take your regular medications as directed. *Please follow up with your primary care provider in 2-3 days, call for an appointment. Let them know you were seen in the Emergency Department and that we ask that you be seen in follow up. We will electronically transmit a record of today's note if your PCP is in our system *If you do not have a primary care provider please contact the [facility] Resource line at [phone]. They will ask some questions about your medical history and help get you set up with a doctor in the community. *Return to Emergency Department if you should have any new, worsening or concerning symptoms, such as [fever greater than 101 F, shaking chills, worsening pain, persistent vomiting or other bothersome symptoms] Prescriptions: No Action metoprolol tartrate 50 mg tablet 50 mg PO BID Qty: 180 1RF clopidogrel [Plavix] 75 mg tablet 75 mg PO QDAY Qty: 90 3RF atorvastatin 10 mg tablet 10 mg PO BEDTIME Qty: 90 3RF losartan 50 mg tablet 50 mg PO DAILY Qty: 90 1RF Referrals: Bobby Kirby, DO [Primary Care Provider] - Stand Alone Forms: Patient Portal/API
[2022-12-10 21:19] LABS: Creatine Kinase 86 U/L (55-170)
[2022-12-10 21:32] LABS: Troponin I < 0.012 ng/mL (0.01-0.034)
== END 2022-12-10 21:59 | disposition home or self-care (01) ==
PROVIDERS: Emergency Medicine; Emergency Provider Emergency Medicine; PCP Family Medicine
DX: R00.2 Palpitations (principal); R07.9 Chest pain, unspecified
CPT/HCPCS: 36415; 71045; 80053; 82550; 83690; 83735; 84484; 85025; 85610; 85730; 93005; 99283; 99284

== ENCOUNTER → 2023-01-05 09:53 | Outpatient (CLI) | payer OTHER, SELFPAY ==
[2021-08-03 15:57] VITALS: BMI 32.5
[2023-01-05 10:56] LABS: Hemoglobin A1C% w Est Avg Glu 5.8 % (4.0-6.0)
[2023-01-05 10:57] LABS: Alanine Aminotransferase 34 IU/L (<50); Albumin 4.6 g/dL (3.5-5.0); Albumin Globulin Ratio 1.3 (1.0-2.8); Alkaline Phosphatase 50 U/L (38-126); Aspartate Aminotransferase 33 IU/L (17-59); Bilirubin Total 1.1 mg/dL (0.2-1.3); Blood Urea Nitrogen 15 mg/dL (9-20); Calcium 9.5 mg/dL (8.4-10.2); Carbon Dioxide 27 mmol/L (22-32); Chloride 104 mmol/L (98-107); Cholesterol 152 mg/dL (140-199); Estimated Glomerular Filt Rate > 60 mL/min (>60); Globulin 3.6 g/dL (1.7-4.1); Glucose 126 mg/dL (70-100); HDL Cholesterol 30 mg/dL (40-60); HEMOLYSIS < 15 (0-50); LDL Cholesterol Calculated 65 mg/dL (<100); Potassium 4.7 mmol/L (3.4-5.1); Sodium 139 mmol/L (137-145); Total Protein 8.2 g/dL (6.3-8.2); Triglycerides 284 mg/dL (35-150)
[2023-01-05 11:28] LABS: Prostate Specific Antigen 1.33 ng/mL (0.10-4.00); TSH w/ Reflex to FT4 1.48 uIU/mL (0.47-4.68)
== END ==
PROVIDERS: PCP Family Medicine; Referring Provider Family Medicine; Visit Provider Family Medicine
DX: E78.2 Mixed hyperlipidemia (principal); I10 Essential (primary) hypertension; I25.10 Atherosclerotic heart disease of native coronary artery without angina pectoris; R73.03 Prediabetes
CPT/HCPCS: 36415; 80053; 80061; 83036; 84153; 84443

== ENCOUNTER 2023-03-06 16:08 | Emergency (ER) | payer OTHER, SELFPAY ==
[2021-08-03 15:57] VITALS: BMI 32.5
[2023-03-06] VITALS (22 sets, daily range): BP systolic 150–204; BP diastolic 67–108; PULSE 47–71; RESP 11–25; TEMP 37; O2SAT 92–97; BMI 30.7
--- NOTE | 2023-03-06 16:29 | ED_ITS ---
HPI - Chest Pain <Joni Bradley MD - Last Filed: 03/07/23 08:16> General Chief Complaint: Chest Pain Stated Complaint: thinks heart attack/hx of 2 heart attacks Time Seen by Provider: 03/06/23 16:23 History of Present Illness HPI narrative: Patient here with . Complains of left-sided chest pain that radiates in neck that lasted about 5 minutes. Same pain he had with a heart attack last year. Had heart stent done at [facility] last year. Patient sees Dr. Brannon. Patient was here for outpatient x-ray for his knee. However while walking in the hospital he had sudden onset of left-sided chest pain radiating to his left neck. This is the same symptoms he had 4 start attack last year. Currently chest pain-free. Blood pressure is elevated. He is taken all of his medications for today. Related Data Previous Rx's Medication Instructions Recorded atorvastatin 10 mg tablet 10 mg PO BEDTIME #90 tabs 03/06/23 clopidogrel 75 mg tablet (Plavix) 75 mg PO QDAY #90 tabs 03/06/23 losartan 50 mg tablet 50 mg PO DAILY #90 tabs 03/06/23 metoprolol tartrate 50 mg tablet 50 mg PO BID #180 tabs 03/06/23 Allergies Allergy/AdvReac Type Severity Reaction Status Date / Time No Known Drug Allergies Allergy Verified 03/06/23 15:31 Review of Systems <Joni Bradley MD - Last Filed: 03/07/23 08:16> Review of Systems Narrative: GENERAL: negative chills, fatigue, malaise, fever, sweats. HEENT: negative sinus pain, ear pain, sore throat RESPIRATORY: Positive dyspnea, negative cough CARDIOVASCULAR: Positive chest pain, negative palpitations GASTROINTESTINAL: negative nausea, vomiting, abdominal pain : negative dysuria, frequency, hematuria MUSCULOSKELETAL: negative muscle or bony pain SKIN: negative rash, skin lesions NEUROLOGIC: negative weakness, numbness ROS Unobtainable: All systems reviewed & are unremarkable except as noted in HPI and below Patient History <Joni Bradley MD - Last Filed: 03/07/23 08:16> Medical History Preventative health care Pre-diabetes Hyperlipidemia Coronary artery disease Hypertension Heart palpitations Family History Mother Myocardial infarction Brother Myocardial infarction Sister Myocardial infarction Social History marital status: lives independently: Yes Smoking Status: Former smoker Smoking Status: Former smoker alcohol intake frequency: 0-2 drinks per day Substance Use Type: does not use Exam <Joni Bradley MD - Last Filed: 03/07/23 08:16> Narrative Exam Narrative: GENERAL: in no distress, not toxic not dyspneic HEAD: Normocephalic. EYES: Pupils equal round ENT: Mucous membranes moist. NECK: Trachea midline. CARDIOVASCULAR: Regular rate and rhythm RESPIRATORY: Clear to auscultation. Breath sounds equal bilaterally. No wheezes, rales, or rhonchi. GASTROINTESTINAL: Abdomen soft, non-tender EXTREMITIES: No gross deformities. BACK: No flank tenderness. NEURO: AOx4. Clear speech SKIN: Warm and dry PSYCH: Not anxious, is cooperative Initial Vital Signs Initial Vital Signs: Vital Signs Pulse Rate 71 03/06/23 16:23 Respiratory Rate 25 H 03/06/23 16:23 Pulse Oximetry 96 03/06/23 16:23 <Oliver Pierce DO - Last Filed: 03/07/23 00:52> Initial Vital Signs Initial Vital Signs: Vital Signs Pulse Rate 71 03/06/23 16:23 Respiratory Rate 25 H 03/06/23 16:23 Pulse Oximetry 96 03/06/23 16:23 Course <Joni Bradley MD - Last Filed: 03/07/23 08:16> Orders Ordered: Discontinued Medications Aspirin (Aspirin 81 Mg Chew Tab) 324 mg PO NOW ONE Stop: 03/06/23 16:29 Last Admin: 03/06/23 16:34 Dose: 324 mg Documented By: KEZIA Atorvastatin Calcium (Atorvastatin 20 Mg Tablet) 10 mg PO NOW ONE Stop: 03/06/23 23:04 Last Admin: 03/06/23 23:16 Dose: 10 mg Documented By: LINDA Clopidogrel Bisulfate (Clopidogrel 75 Mg Tablet) 75 mg PO NOW ONE Stop: 03/06/23 23:04 Last Admin: 03/06/23 23:16 Dose: 75 mg Documented By: LINDA Losartan Potassium (Losartan 50 Mg Tablet) 50 mg PO NOW ONE Stop: 03/06/23 23:04 Last Admin: 03/06/23 23:15 Dose: 50 mg Documented By: LINDA Nitroglycerin (Nitroglycerin Oint 1 Inch/Gm Oint...G.) 1 inch TOP NOW ONE Stop: 03/06/23 16:29 Last Admin: 03/06/23 16:35 Dose: 1 inch Documented By: KEZIA Vital Signs Vital signs: Vital Signs - 8 hr 03/07/23 00:30 03/07/23 00:30 03/07/23 01:00 Pulse Rate 49 L Respiratory Rate 17 Blood Pressure 165/88 H 176/95 H Pulse Oximetry 94 Oxygen Delivery Method Room Air 03/07/23 01:00 03/07/23 01:30 03/07/23 01:30 Pulse Rate 55 L 58 L Respiratory Rate 22 17 Blood Pressure 153/86 H Pulse Oximetry 97 93 Oxygen Delivery Method Room Air <Oliver Pierce DO - Last Filed: 03/07/23 00:52> Orders Ordered: Discontinued Medications Aspirin (Aspirin 81 Mg Chew Tab) 324 mg PO NOW ONE Stop: 03/06/23 16:29 Last Admin: 03/06/23 16:34 Dose: 324 mg Documented By: KEZIA Atorvastatin Calcium (Atorvastatin 20 Mg Tablet) 10 mg PO NOW ONE Stop: 03/06/23 23:04 Last Admin: 03/06/23 23:16 Dose: 10 mg Documented By: LINDA Clopidogrel Bisulfate (Clopidogrel 75 Mg Tablet) 75 mg PO NOW ONE Stop: 03/06/23 23:04 Last Admin: 03/06/23 23:16 Dose: 75 mg Documented By: LINDA Losartan Potassium (Losartan 50 Mg Tablet) 50 mg PO NOW ONE Stop: 03/06/23 23:04 Last Admin: 03/06/23 23:15 Dose: 50 mg Documented By: LINDA Nitroglycerin (Nitroglycerin Oint 1 Inch/Gm Oint...G.) 1 inch TOP NOW ONE Stop: 03/06/23 16:29 Last Admin: 03/06/23 16:35 Dose: 1 inch Documented By: KEZIA Vital Signs Vital signs: Vital Signs - 8 hr 03/07/23 00:30 03/07/23 00:30 03/07/23 01:00 Pulse Rate 49 L Respiratory Rate 17 Blood Pressure 165/88 H 176/95 H Pulse Oximetry 94 Oxygen Delivery Method Room Air 03/07/23 01:00 03/07/23 01:30 03/07/23 01:30 Pulse Rate 55 L 58 L Respiratory Rate 22 17 Blood Pressure 153/86 H Pulse Oximetry 97 93 Oxygen Delivery Method Room Air MDM - Chest Pain <Joni Bradley MD - Last Filed: 03/07/23 08:16> Lab Data 03/06/23 16:27 03/06/23 16:27 Labs: Lab Results 03/06/23 03/06/23 Range/Units 16:27 18:30 WBC 8.8 (4.5-11.0) X10^3/uL RBC 5.14 (4.5-5.9) X10^6/uL Hgb 16.0 (13.5-17.5) g/dL Hct 44.8 (41-53) % MCV 87.1 (80-100) fL MCH 31.0 (26-34) PG MCHC 35.6 (30-36) % RDW 13.7 (11.6-14.8) % Plt Count 274 (150-400) X10^3/uL Neut % (Auto) 51.9 (50-75) % Lymph % (Auto) 32.7 (25-40) % [place]y % (Auto) 10.2 (3-14) % Eos % (Auto) 4.0 (2-4) % Baso % (Auto) 1.2 (0-2) % Neut # (Auto) 4600 (3714-3208) /uL Lymph # (Auto) 2900 (9089-3308) /uL [place]y # (Auto) 900 (0-900) /uL Eos # (Auto) 400 (0-450) /uL Baso # (Auto) 100 (0-100) /uL PT 11.9 (10.1-12.7) SECONDS INR 1.0 (0.9-1.3) APTT 33 (26-36) SECONDS Sodium 139 (137-145) mmol/L Potassium 3.7 (3.4-5.1) mmol/L Chloride 103 (98-107) mmol/L Carbon Dioxide 26 (22-32) mmol/L BUN 18 (9-20) mg/dL Creatinine 0.72 (0.66-1.25) mg/dL Estimated GFR > 60 (>60) mL/min BUN/Creatinine Ratio 25.0 H (6-22) Glucose 99 (70-100) mg/dL Calcium 9.6 (8.4-10.2) mg/dL Total Bilirubin 0.7 (0.2-1.3) mg/dL AST 36 (17-59) IU/L ALT 35 (<50) IU/L Alkaline Phosphatase 43 (38-126) U/L Total Creatine Kinase 116 104 (55-170) U/L Troponin I 0.012 < 0.012 (0.01-0.034) ng/mL Total Protein 8.1 (6.3-8.2) g/dL Albumin 4.6 (3.5-5.0) g/dL Globulin 3.5 (1.7-4.1) g/dL Albumin/Globulin Ratio 1.3 (1.0-2.8) Imaging Data Chest x-ray: Radiologist's Impression: [address] [address] XRay Report Signed Patient: Felipe Petersen MR#: [id number] : 1965 Acct:[id number] Age/Sex: 57 / M Date of Service: 03/06/23 Loc: ED Accession Number: [id number] Procedure: XR chest 1V Ordering Provider: Joni Bradley MD PROCEDURE: XR CHEST 1V INDICATIONS: chest pain TECHNIQUE: One view of the chest was acquired. COMPARISON: [facility], CR, XR CHEST 1 VIEW, 08/16/2022, 10:28. [facility], CR, XR CHEST 1V, 12/10/2022, 16:58. FINDINGS: Surgical changes and devices: None. Lungs and pleura: Lungs are clear. No pleural effusions or pneumothorax. Mediastinum: Mediastinal contours appear normal. Heart size is normal. Bones and chest wall: No suspicious bony lesions. Overlying soft tissues appear unremarkable. IMPRESSION: No acute cardiopulmonary abnormalities or focal airspace disease. Dictated by: Erik Urbina M.D. on 03/06/2023 at 17:18 Approved by: Erik Urbina M.D. on 03/06/2023 at 17:18 [facility] Narrative Medical decision making narrative: Patient here with . Complains of left-sided chest pain that radiates in neck that lasted about 5 minutes. Same pain he had with a heart attack last year. Had heart stent done at [facility] last year. Patient sees Dr. Brannon. Patient was here for outpatient x-ray for his knee. However while walking in the hospital he had sudden onset of left-sided chest pain radiating to his left neck. This is the same symptoms he had 4 start attack last year. Currently chest pain-free. Blood pressure is elevated. He is taken all of his medications for today. After history and exam CBC CMP troponin x2 EKG chest x-ray nitro paste aspirin MDM CC: Chest pain Complicating co-morbidities: LA within the last year Data collected from: Patient and Medical records reviewed: No recent visit for this complaint Differential considered: Includes but not limited to LA STEMI non-STEMI unstable angina unstable angina acute coronary syndrome Exam documented above, pertinent findings include: Nontender chest Lab Test results independently reviewed as above. Pertinent findings: WBC 8.8 hemoglobin 16.0 Sodium 139 potassium 3.7 AST 36 ALT 35 Troponin 0.012 Independently reviewed EKG normal sinus rhythm rate [address] elevation or depression Imaging studies independently reviewed: Chest x-ray no acute finding Consultations: 5:27 p.m. s/w [facility], dr leal, recommends transferring to [facility] for another possible heart catheterization. No heparin indicated at this time. Troponin is normal Treatments: Nitro paste aspirin Re-evaluations: Blood pressure has improved. Chest pain has decreased. Discussion: Appropriate for transfer continuity care and possible heart catheterization after speaking with Cardiology on-call. Diagnosis: Acute chest pain 6:00 p.m. Brennick: Sign out to Dr Pierce, patient awaiting for a call back from [facility] to be transferred. Second troponin is pending. Recheck blood pressure. <Oliver Pierce, DO - Last Filed: 03/07/23 00:52> Lab Data Labs: Lab Results 03/06/23 03/06/23 Range/Units 16:27 18:30 WBC 8.8 (4.5-11.0) X10^3/uL RBC 5.14 (4.5-5.9) X10^6/uL Hgb 16.0 (13.5-17.5) g/dL Hct 44.8 (41-53) % MCV 87.1 (80-100) fL MCH 31.0 (26-34) PG MCHC 35.6 (30-36) % RDW 13.7 (11.6-14.8) % Plt Count 274 (150-400) X10^3/uL Neut % (Auto) 51.9 (50-75) % Lymph % (Auto) 32.7 (25-40) % Dooly % (Auto) 10.2 (3-14) % Eos % (Auto) 4.0 (2-4) % Baso % (Auto) 1.2 (0-2) % Neut # (Auto) 4600 (3578-9105) /uL Lymph # (Auto) 2900 (0597-0972) /uL Dooly # (Auto) 900 (0-900) /uL Eos # (Auto) 400 (0-450) /uL Baso # (Auto) 100 (0-100) /uL PT 11.9 (10.1-12.7) SECONDS INR 1.0 (0.9-1.3) APTT 33 (26-36) SECONDS Sodium 139 (137-145) mmol/L Potassium 3.7 (3.4-5.1) mmol/L Chloride 103 (98-107) mmol/L Carbon Dioxide 26 (22-32) mmol/L BUN 18 (9-20) mg/dL Creatinine 0.72 (0.66-1.25) mg/dL Estimated GFR > 60 (>60) mL/min BUN/Creatinine Ratio 25.0 H (6-22) Glucose 99 (70-100) mg/dL Calcium 9.6 (8.4-10.2) mg/dL Total Bilirubin 0.7 (0.2-1.3) mg/dL AST 36 (17-59) IU/L ALT 35 (<50) IU/L Alkaline Phosphatase 43 (38-126) U/L Total Creatine Kinase 116 104 (55-170) U/L Troponin I 0.012 < 0.012 (0.01-0.034) ng/mL Total Protein 8.1 (6.3-8.2) g/dL Albumin 4.6 (3.5-5.0) g/dL Globulin 3.5 (1.7-4.1) g/dL Albumin/Globulin Ratio 1.3 (1.0-2.8) MDM Narrative Medical decision making narrative: Patient here with . Complains of left-sided chest pain that radiates in neck that lasted about 5 minutes. Same pain he had with a heart attack last year. Had heart stent done at [facility] last year. Patient sees Dr. Brannon. Patient was here for outpatient x-ray for his knee. However while walking in the hospital he had sudden onset of left-sided chest pain radiating to his left neck. This is the same symptoms he had 4 start attack last year. Currently chest pain-free. Blood pressure is elevated. He is taken all of his medications for today. After history and exam CBC CMP troponin x2 EKG chest x-ray nitro paste aspirin MDM CC: Chest pain Complicating co-morbidities: LA within the last year Data collected from: Patient and Medical records reviewed: No recent visit for this complaint Differential considered: Includes but not limited to LA STEMI non-STEMI unstable angina unstable angina acute coronary syndrome Exam documented above, pertinent findings include: Nontender chest Lab Test results independently reviewed as above. Pertinent findings: WBC 8.8 hemoglobin 16.0 Sodium 139 potassium 3.7 AST 36 ALT 35 Troponin 0.012 Independently reviewed EKG normal sinus rhythm rate [address] elevation or depression Imaging studies independently reviewed: Chest x-ray no acute finding Consultations: 5:27 p.m. s/w [facility], dr leal, recommends transferring to [facility] for another possible heart catheterization. No heparin indicated at this time. Troponin is normal Treatments: Nitro paste aspirin Re-evaluations: Blood pressure has improved. Chest pain has decreased. Discussion: Appropriate for transfer continuity care and possible heart catheterization after speaking with Cardiology on-call. Diagnosis: Acute chest pain 6:00 p.m. Mirna: Sign out to Dr Pierce, patient awaiting for a call back from [facility] to be transferred. Second troponin is pending. Recheck blood pressure. [1800] (Stan) Patient received in sign out from [Mirna]. I have reviewed the clinical course and performed an independent history and physical exam. 0045 - Dr. Rosario ([facility] Hospitalist) happy to accept patient in transfer Critical Care Time <Oliver Pierce, DO - Last Filed: 03/07/23 00:52> Critical Care Time Critical Care Time: Yes Total Critical Care Time: 40 Attestation: The high probability of a clinically significant, sudden or life threatening deterioration of the [CV] system(s) required my full and direct attention, intervention and personal management. The aggregate critical care time was [40] minutes. This time is in addition to time spent performing reported procedures but includes the following: [x] Data Review and interpretation []x Patient assessment and monitoring of vital signs [x] Documentation [x] Medication orders and management Discharge Plan Departure [facility] Disposition[facility] Clinical Impression: Chest pain Qualifiers: Chest pain type: unspecified Qualified Code(s): R07.9 - Chest pain, unspecified Prescriptions: No Action atorvastatin 10 mg tablet 10 mg PO BEDTIME Qty: 90 3RF clopidogrel [Plavix] 75 mg tablet 75 mg PO QDAY Qty: 90 3RF losartan 50 mg tablet 50 mg PO DAILY Qty: 90 1RF metoprolol tartrate 50 mg tablet 50 mg PO BID Qty: 180 1RF Referrals: Bobby Kirby, [Primary Care Provider] -
[2023-03-06] MEDS: ASPIRIN 81 MG CHEW TAB 324 MG PO (16:34)
[2023-03-06] MEDS: NITROGLYCERIN OINT 1 INCH/GM OINT...G. TOP (16:35)
[2023-03-06 16:49] LABS: Add Manual Diff / Slide Review NO; Basophils Absolute Auto 100 /uL (0-100); Basophils Percent Auto 1.2 % (0-2); Eosinophils Absolute Auto 400 /uL (0-450); Hematocrit 44.8 % (41-53); Lymphocytes Absolute Auto 2900 /uL (1100-4500); Lymphocytes Percent Auto 32.7 % (25-40); Mean Corpuscular HGB Conc 35.6 % (30-36); Mean Corpuscular Volume 87.1 fL (80-100); Monocytes Absolute Auto 900 /uL (0-900); Monocytes Percent Auto 10.2 % (3-14); Neutrophils Absolute Auto 4600 /uL (1500-7000); Neutrophils Percent Auto 51.9 % (50-75); Platelet Count 274 X10^3/uL (150-400); Red Blood Cell Count 5.14 X10^6/uL (4.5-5.9); Red Cell Distribution Width 13.7 % (11.6-14.8); White Blood Cell Count 8.8 X10^3/uL (4.5-11.0)
[2023-03-06 16:58] LABS: Prothrombin Time 11.9 SECONDS (10.1-12.7)
[2023-03-06 17:01] LABS: PTT Partial Thromboplastin Tim 33 SECONDS (26-36)
[2023-03-06 17:02] LABS: Alanine Aminotransferase 35 IU/L (<50); Albumin 4.6 g/dL (3.5-5.0); Albumin Globulin Ratio 1.3 (1.0-2.8); Alkaline Phosphatase 43 U/L (38-126); Aspartate Aminotransferase 36 IU/L (17-59); Bilirubin Total 0.7 mg/dL (0.2-1.3); Blood Urea Nitrogen 18 mg/dL (9-20); Calcium 9.6 mg/dL (8.4-10.2); Carbon Dioxide 26 mmol/L (22-32); Chloride 103 mmol/L (98-107); Creatine Kinase 116 U/L (55-170); Estimated Glomerular Filt Rate > 60 mL/min (>60); Globulin 3.5 g/dL (1.7-4.1); Glucose 99 mg/dL (70-100); HEMOLYSIS 50 (0-50); Potassium 3.7 mmol/L (3.4-5.1); Sodium 139 mmol/L (137-145); Total Protein 8.1 g/dL (6.3-8.2)
[2023-03-06 17:14] LABS: Troponin I 0.012 ng/mL (0.01-0.034)
[2023-03-06 18:46] LABS: Creatine Kinase 104 U/L (55-170)
[2023-03-06 18:58] LABS: Troponin I < 0.012 ng/mL (0.01-0.034)
--- NOTE | 2023-03-06 23:04 | PC.NURSE ---
Pt continues to state he is pain free.
[2023-03-06] MEDS: LOSARTAN 50 MG TABLET PO (23:15)
[2023-03-06] MEDS: CLOPIDOGREL 75 MG TABLET PO (23:16)
[2023-03-06] MEDS: ATORVASTATIN 20 MG TABLET 10 MG PO (23:16)
[2023-03-07] VITALS: BP 136/69; PULSE 49; RESP 13; O2SAT 94
[2023-03-07 00:30] VITALS: BP 165/88; PULSE 49; RESP 17; O2SAT 94
[2023-03-07 01:00] VITALS: BP 176/95; PULSE 55; RESP 22; O2SAT 97
[2023-03-07 01:30] VITALS: BP 153/86; PULSE 58; RESP 17; O2SAT 93
== END 2023-03-07 01:41 | disposition short-term general hospital (02) ==
PROVIDERS: Emergency Medicine; Emergency Provider Emergency Medicine; PCP Family Medicine
DX: R07.9 Chest pain, unspecified (principal); I10 Essential (primary) hypertension; I25.2 Old myocardial infarction; Z95.5 Presence of coronary angioplasty implant and graft
CPT/HCPCS: 36415; 71045; 80053; 82550; 84484; 85025; 85610; 85730; 93005; 93010; 99284; 99291

== ENCOUNTER → 2024-12-30 11:33 | Outpatient (CLI) | payer OTHER, SELFPAY ==
[2021-08-03 15:57] VITALS: BMI 32.5
[2024-12-30 12:23] LABS: Add Manual Diff / Slide Review NO; Hematocrit 47.2 % (41-53); Hemoglobin 16.6 g/dL (13.5-17.5); Lymphocytes Absolute Auto 2200 /uL (1100-4500); Mean Corpuscular HGB Conc 35.1 % (30-36); Mean Corpuscular Hemoglobin 30.9 PG (26-34); Mean Corpuscular Volume 87.8 fL (80-100); Platelet Count 272 X10^3/uL (150-400)
[2024-12-30 13:20] LABS: TSH w/ Reflex to FT4 0.88 uIU/mL (0.47-4.68)
[2024-12-30 14:44] LABS: Hemoglobin A1C% w Est Avg Glu 10.7 % (4.0-6.0)
[2024-12-30 21:48] LABS: HEMOLYSIS < 15 (0-50)
[2024-12-30 22:47] LABS: Alanine Aminotransferase 37 IU/L (<50); Albumin 4.6 g/dL (3.5-5.0); Albumin Globulin Ratio 1.4 (1.0-2.8); Alkaline Phosphatase 61 U/L (38-126); Blood Urea Nitrogen 17 mg/dL (9-20); Calcium 10.0 mg/dL (8.4-10.2); Carbon Dioxide 18 mmol/L (22-32); Chloride 101 mmol/L (98-107); Cholesterol 227 mg/dL (140-199); Estimated Glomerular Filt Rate > 60 mL/min (>60); Globulin 3.2 g/dL (1.7-4.1); Glucose 337 mg/dL (70-99); HDL Cholesterol 29 mg/dL (40-60); Potassium 4.8 mmol/L (3.4-5.1); Sodium 133 mmol/L (137-145); Total Protein 7.8 g/dL (6.3-8.2)
[2024-12-30 22:49] LABS: Triglycerides 621 mg/dL (35-150)
== END ==
PROVIDERS: PCP Family Medicine; Referring Provider Family Medicine; Visit Provider Family Medicine
DX: I10 Essential (primary) hypertension (principal); I25.10 Atherosclerotic heart disease of native coronary artery without angina pectoris; E78.2 Mixed hyperlipidemia; R73.03 Prediabetes
CPT/HCPCS: 36415; 80053; 80061; 83036; 84443; 85025

== ENCOUNTER → 2025-02-03 07:13 | Outpatient (CLI) | payer OTHER, SELFPAY ==
[2024-12-31 13:49] VITALS: BMI 32.5
[2025-02-03 08:32] LABS: Microalbumi Creatinin Ratio Ur 6.0 ug/mg CR (<30)
[2025-02-03 09:03] LABS: Hemoglobin A1C% w Est Avg Glu 8.7 % (4.0-6.0)
[2025-02-03 09:16] LABS: Alanine Aminotransferase 29 IU/L (<50); Albumin 4.7 g/dL (3.5-5.0); Albumin Globulin Ratio 1.6 (1.0-2.8); Alkaline Phosphatase 61 U/L (38-126); Blood Urea Nitrogen 17 mg/dL (9-20); Calcium 10.0 mg/dL (8.4-10.2); Carbon Dioxide 26 mmol/L (22-32); Chloride 102 mmol/L (98-107); Estimated Glomerular Filt Rate > 60 mL/min (>60); Globulin 3.0 g/dL (1.7-4.1); Glucose 142 mg/dL (70-99); HEMOLYSIS < 15 (0-50); Potassium 4.8 mmol/L (3.4-5.1); Sodium 138 mmol/L (137-145); Total Protein 7.7 g/dL (6.3-8.2)
[2025-02-03 09:48] LABS: TSH w/ Reflex to FT4 1.16 uIU/mL (0.47-4.68)
== END ==
PROVIDERS: PCP Family Medicine; Referring Provider Family Medicine; Visit Provider Family Medicine
DX: E11.9 Type 2 diabetes mellitus without complications (principal); I10 Essential (primary) hypertension; E78.2 Mixed hyperlipidemia; I25.10 Atherosclerotic heart disease of native coronary artery without angina pectoris
CPT/HCPCS: 36415; 80053; 82043; 82570; 83036; 84443

== ENCOUNTER → 2025-03-24 09:23 | Outpatient (CLI) | payer OTHER, SELFPAY ==
[2024-12-31 13:49] VITALS: BMI 32.5
--- NOTE | 2025-03-24 09:33 | DIAB.MNTFU ---
Follow-up Diabetes Medical Nutrition Therapy Assessment Name: Felipe Petersen (Lloyd) Date: 03/24/25 Time: 930-1030a Dx: Type II Diabetes Lloyd presents for DM visit, accompanied by Shyann. FH of Dm with both parents and paternal grandparents. Last hgA1c down from 10.7% to 8.7%, though anticipate an improved hgA1c next lab draw considering GMI of 6.6% over last 14 days. Added potatoes and rice and BG were elevated. Less so when paired with protein. Reports reduced CHO intake. Wearing sample CGM from PCP, and Bg are meeting TIR goals. only taking 250mg Metformin BID. Was concerned about lows. Eye: 2-3 years ago Feet: None Dental: None, affordability barrier Diet Recall: 530a; coffee 12oz with cream 6p: sourdough toast x1, eggs 2 noon: sandwich with ham and cheese or PBJ, salad 5p: protein, veggies potato or pasta or rice or no cho 7p: cereal with milk water 2-3x 16.9oz iced tea unsweet x 1c milk 12oz +6oz in cereal Anthropometrics: Ht: 66 Wt: 171# reported 03/2025 182# reported home wt 01/2025 Weight history: Physical Activity: walking 3 mi / 75 min per day Self-Monitoring Blood Glucose: Issues with supplies and rx. [facility] to troubleshoot this with [facility] and [facility]. Wearing CGM from PCP office. TIR well within goal. TIR: 0% very high 3% high 97% in range 0% low avmg/dl GMI: 6.6% std dev: 21mg/dl variance: 15.3% Diabetes Medications: 500mg Metformin BID--- taking 250mg BID 25mg Jardiance --- not taking due to expense Pertinent Labs: hgA1c: 10.7% 12/2024 8.7% 01/2025 Past Medical History: (Last Reviewed 12/31/24 @ 14:02 by Bobby Kirby DO) Coronary artery disease Heart palpitations History of colon polyps Hyperlipidemia Hypertension Pre-diabetes Preventative health care Stable angina Type 2 diabetes mellitus Well adult exam Nutrition Rx: Carbohydrates: Meal:45g or lessSnack:15-30g Nutrition Diagnosis: - Excessive CHO intake r/t nutrition knowledge deficit aeb diet recall-- improved - Nutrition and food related knowledge deficit r/t new dx T2Dm aeb pt report and hgA1c 10.7%- improved/in progress - Self monitoring deficit r/t knowledge deficit and no supplies aeb pt report -- improved Intervention: This participant was very receptive. Provided appropriate educational handouts. Discussed the following topics: HgA1c, its correlation to blood glucose numbers, and rationale for goal Importance of self-monitoring, how often, and when to check. CGM options and coverage Pairing macronutrients a Recommended servings for carbohydrates at meals and snacks Reducing Dm complication risks Created SMART goals for patient self-care and success. Goals: Eat q 3-4 hours- in progress Add potatoes back to diet, over rice-- met cardiopulmonary supervisor glucose monitor-- in progress chat with PCP about cardio rehab--- in progress Pair CHO and protein at each meal/snack- new Make eye appt- new continue monitoring BG - new Follow-up: CLAIRE RHOADES follow-up in 3-4 months per pt rekinsey Berumen RDN, [place] Certified Diabetes Care and [employer]er P: [phone] Thank you for this referral
== END ==
LOC: DIET 09:23
PROVIDERS: PCP Family Medicine; Referring Provider Family Medicine
DX: E11.9 Type 2 diabetes mellitus without complications (principal); Z71.3 Dietary counseling and surveillance; Z83.3 Family history of diabetes mellitus; Z79.84 Long term (current) use of oral hypoglycemic drugs
CPT/HCPCS: 97803